=== PATIENT | female | born 1955 | race Caucasian/White ===

== ENCOUNTER 2019-07-04 16:00 | Outpatient (RCR) | payer MEDICARE, MEDICAID, SELFPAY ==
--- NOTE | 2019-05-21 18:38 | PT.OIE ---
Current Diagnoses Plantar fascial fibromatosis (05/21/19) Difficulty in walking, not elsewhere classified (05/21/19) Abnormal posture (05/21/19) Visit Care Team Role Provider Type Vanessa Lepe MD Attending Provider Non-Staff Family Provider Primary Care Provider Specialty: Medical Address: [address] [place] [address], [id number] Email: Physical Therapy Initial Evaluation PT-OP-A Visit Information Start: 05/23/19 09:22 Freq: Status: Active Protocol: Document 05/21/19 17:23 AW (Rec: 05/23/19 17:00 AW [email or web address]) Out-Patient Physical Therapy Visit Information Visit Information Visit Type Initial Evaluation Visit Start Time 13:45 Visit Stop Time 14:30 Total Visit Minutes 45 Visit Number 1 Number of CINEMA OR THEATRE MANAGER Visits 0 Evaluation Information Evaluation Date 05/21/19 PT-OP-B Current Condition Start: 05/23/19 09:22 Freq: Status: Active Protocol: Document 05/21/19 17:23 AW (Rec: 05/23/19 17:00 AW [email or web address]) Current Condition History of Current Condition Onset Date 6 months Current Complaints right heel and knee pain History of Current Condition Approximately six months ago, Trinity struck her heel hard on a cement floor which was followed by immediate heel pain that lasted several weeks . Since then, the pain has waxed and waned but continues to bother her. The heel pain is worse upon first steps in the morning and after periods of activity. At baseline, pt prefers to be barefoot or in minimalist footwear. She does report that her heel pain has improved since she started wearing cross-training shoes more regularly. The shoes offer moderate hindfoot support but little support at the heel counter and little forefoot support. Within the past month, pt reports new onset right knee pain which she believes is associated with avoiding heelstrike on her right leg while walking. Pt also reports chronic neck pain but is agreeable to focusing this plan of care on heel and knee pain. Prior Treatments and Tests Pt has not seen podiatry and has never had PT for this problem before. Future Testing and Treatments Planned None identified Treatment Goals Patient/Caregiver Goals To minimize heel and knee pain for improved ambulation, stair navigation, and return to regular exercise. Prior Functional Status Baseline Function- ADL's Independent Baseline Function- Mobility Independent Baseline Function- Gait no assistive device Current Functional Impairments (Reported) Functional Limitations- Mobility/Gait Heel and knee pain with first morning steps and after periods of activity Personal Factors Other Personal Factors That May Effect osteopenia/osteoporosis Therapy/Recovery PT-OP-C Subjective Start: 05/23/19 09:22 Freq: Status: Active Protocol: Document 05/21/19 17:23 AW (Rec: 05/23/19 17:00 AW [email or web address]) OP-PT Subjective Patient Comments Patient Comments I want to be able to walk better and without pain. Patient Questionnaires Lower Extremity Functional Scale LEFS Score 63 LEFS Impairment 1 to 19% Impaired (Score 63-79 ) PT-OP-F Manual Assessment Start: 05/23/19 09:22 Freq: Status: Active Protocol: Document 05/21/19 17:23 AW (Rec: 05/23/19 17:00 AW [email or web address]) Manual Assessments Soft Tissue Assessment Soft Tissue Mobility Assessment Increased density of right gastroc/soleus complex Joint Mobility Assessment Joint Mobility Assessment Posterior talar glides mildly restricted bilaterally. PT-OP-G Mobility & Gait Start: 05/23/19 09:22 Freq: Status: Active Protocol: Document 05/21/19 17:23 AW (Rec: 05/23/19 17:00 AW [email or web address]) OP Gait Assessment Gait Deviations General Gait Pattern Antalgic,Decreased Stride Length,Decreased Feet Clearance Factors Limiting Gait Function Factors Limiting Gait Function Pain Comments Gait Comments Pt presents with decreased heelstrike and decreased stance time on RLE and decreased step length LLE. PT-OP-H Neuro Start: 05/23/19 09:22 Freq: Status: Active Protocol: Document 05/21/19 17:23 AW (Rec: 05/23/19 17:00 AW [email or web address]) Sensation Evaluation Gross Sensation Gross Sensation WNL Deep Tendon Reflex & Clonus Assessment Deep Tendon Reflex Bilateral Achilles Deep Tendon Reflex 2+ Normal Bilateral Patellar Deep Tendon Reflex 2+ Normal PT-OP-J Posture/Palpation/Skin Start: 05/23/19 09:22 Freq: Status: Active Protocol: Document 05/21/19 17:23 AW (Rec: 05/27/19 15:36 AW [id number]) Posture Evaluation Position Standing Evaluation View Posterior Hip Posture (L) Neutral,(R) Neutral Ankle/Foot Posture (L) Neutral,(R) Neutral Foot Arch (L) Medium Arch,(R) Medium Arch Comments Posture Comments Pt presents with decreased weighbearing RLE, bilateral medium arches, neutral Achilles alignment, no apparent varus or valgus posture at the knee, and without significant rotation/ version at the hips. Palpation Assessment Location One Palpation Location right feet Palpation Findings Tenderness Palpation Details Able to provoke pain at the plantar aspect of the calcaneus with deep palpation. No point tenderness of posterior calcaneus. PT-OP-K Range of Motion Start: 05/23/19 09:22 Freq: Status: Active Protocol: Document 05/21/19 17:23 AW (Rec: 05/27/19 15:36 AW [id number]) Knee Goniometric Range of Motion Knee Right Patient Position Supine Flexion Active (degrees) 115 Extension Active (degrees) 0 Left Patient Position Supine Flexion Active (degrees) 120 Extension Active (degrees) 0 Knee ROM Limitations Knee ROM Limitations Pain Ankle and Foot Goniometric Range of Motion Ankle and Foot Right Active Testing Position Supine Dorsiflexion with Knee Flexed 10 Dorsiflexion with Knee Extended 0 Left Active Testing Position Supine Dorsiflexion with Knee Flexed 10 Dorsiflexion with Knee Extended 0 Ankle and Foot ROM Limitations ROM Limitations Soft Tissue Tightness Comments Limitation likely due to plantar flexor tightness PT-OP-L Special Tests Start: 05/23/19 09:22 Freq: Status: Active Protocol: Document 05/21/19 17:23 AW (Rec: 05/27/19 15:36 AW [id number]) Special Tests Hip Special Tests Scour Test Test Results negative bilaterally Knee Special Tests Sal Test Results negative bilaterally Comments no evidence of tight hip flexors or IT band/TFL Valgus- 25 Degrees Test Results negative Comments Right knee negative on varus and valgus stress testing at 0 and 25 degrees Patellar Grind Test Test Results positive right Comments reproduced knee pain Foot/Ankle Special Tests 1 Test Results Windlass negative Comments negative in WB and NWB PT-OP-M Strength Start: 05/23/19 09:22 Freq: Status: Active Protocol: Document 05/21/19 17:23 AW (Rec: 05/27/19 15:36 AW [id number]) Knee Strength Knee Manual Muscle Testing Right Flexion (S2) 4 Good Extension (L3) 4 Good Comments Left knee 5/5 flexion and extension Ankle/Foot Strength Ankle and Foot Manual Muscle Testing Right Dorsiflexion (L4) 4 Good Plantarflexion (S1) 4+ Good+ Inversion 4+ Good+ Eversion (S1) 4+ Good+ Comments No difference side to side. Toe Strength Toe Manual Muscle Testing Right Great Toe Flexion 4+ Good+ Extension 4+ Good+ Comments No difference side to side PT-OP-T Assessment and Plan Start: 05/23/19 09:22 Freq: Status: Active Protocol: Document 05/21/19 17:23 AW (Rec: 05/27/19 15:36 AW [email or web address]) Physical Therapy Assessment Rehab Potential Rehabilitation Potential Excellent Evaluation Complexity Number of Personal Factors/Comorbidities 1-2 Number of Body Systems Impaired 1-2 Clinical Presentation at Evaluation Stable Impairments Impairments Balance,Gait,Pain,Posture,ROM, Soft Tissue Mobility,Strength Goals 3 Impairment Pt with 0 degrees active dorsiflexion with knee extended [facility] Goal (LTG) Pt will increase active DF with knee extended to 5 degrees or greater for improved gait mechanics/ heelstrike. LTG Duration 06/18/19 2 Impairment Pt scores 63/80 on LEFS [facility] Goal (LTG) Pt will score 72/80 or greater for improved function in daily activities. LTG Duration 06/18/19 1 Impairment Pt without appropriate HEP Short Term Goal (STG) Pt will be independent with HEP for support of therapy services provided in clinic. STG Duration 06/04/19 Assessment Summary Assessment Trinity presents as a low complexity evaluation in outpatient physical therapy with complaints of right heel pain worse in the morning and after periods of activity. Her pain was precipitated by a hard heelstrike on a concrete floor several months ago. Altered gait pattern - including decreased right heelstrike and decreased R LE stance time - has perpetuated her heel pain and likely contributed to right knee pain . Pt's foot pain is not highly irritable and is somewhat ameliorated by change in footwear, but has potential to increase her knee pain due to altered gait. She presents with decreased function, altered gait, decreased ankle range of motion, and right foot pain which can be addressed by outpatient physical therapy. Physical Therapy Plan Frequency and Duration Frequency of Treatment 1x/Week Duration of Treatment 4 weeks Plan of Care Start Date 05/21/19 Plan of Care End Date 06/25/19 Therapeutic Interventions Therapeutic Interventions Balance Training,Gait Training ,Home Exercise Program,Joint Mobilizations,Manual Therapy, Neuromuscular Re-education, Orthotic/Prosthetic Management ,Patient/Caregiver Education, Self-Care/Home Management,Soft Tissue Mobilization,Taping, Therapeutic Activities, Therapeutic Exercises Modalities Cold Pack/Ice Massage, Ultrasound Next Visit Focus/Plan Next Note Type Treatment Note Next Visit Plan AROM ankle, progress to resisted ankle ROM as tolerated, gastroc/soleus stretching, ankle joint mobs to improve DF
--- NOTE | 2019-06-06 17:07 | PT.OTN ---
Current Diagnoses Plantar fascial fibromatosis (06/06/19) Difficulty in walking, not elsewhere classified (06/06/19) Abnormal posture (06/06/19) Physical Therapy Treatment Note PT-OP-A Visit Information Start: 05/23/19 09:22 Freq: Status: Active Protocol: Document 06/06/19 16:54 AW (Rec: 06/06/19 17:07 AW [email or web address]) Out-Patient Physical Therapy Visit Information Visit Information Visit Type Treatment Note Visit Start Time 16:00 Visit Stop Time 16:45 Total Visit Minutes 45 Visit Number 2 Number of BUS ASSISTANT Visits 0 Evaluation Information Evaluation Date 05/21/19 PT-OP-B Current Condition Start: 05/23/19 09:22 Freq: Status: Active Protocol: Document 05/21/19 17:23 AW (Rec: 05/23/19 17:00 AW [email or web address]) Current Condition History of Current Condition Onset Date 6 months Current Complaints right heel and knee pain History of Current Condition Approximately six months ago, Trinity struck her heel hard on a cement floor which was followed by immediate heel pain that lasted several weeks . Since then, the pain has waxed and waned but continues to bother her. The heel pain is worse upon first steps in the morning and after periods of activity. At baseline, pt prefers to be barefoot or in minimalist footwear. She does report that her heel pain has improved since she started wearing cross-training shoes more regularly. The shoes offer moderate hindfoot support but little support at the heel counter and little forefoot support. Within the past month, pt reports new onset right knee pain which she believes is associated with avoiding heelstrike on her right leg while walking. Pt also reports chronic neck pain but is agreeable to focusing this plan of care on heel and knee pain. Prior Treatments and Tests Pt has not seen podiatry and has never had PT for this problem before. Future Testing and Treatments Planned None identified Treatment Goals Patient/Caregiver Goals To minimize heel and knee pain for improved ambulation, stair navigation, and return to regular exercise. 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 PT-OP-F Manual Assessment Start: 05/23/19 09:22 Freq: Status: Active Protocol: Document 05/21/19 17:23 AW (Rec: 05/23/19 17:00 AW [email or web address]) Manual Assessments Soft Tissue Assessment Soft Tissue Mobility Assessment Increased density of right gastroc/soleus complex Joint Mobility Assessment Joint Mobility Assessment Posterior talar glides mildly restricted bilaterally. PT-OP-G Mobility & Gait Start: 05/23/19 09:22 Freq: Status: Active Protocol: Document 05/21/19 17:23 AW (Rec: 05/23/19 17:00 AW [email or web address]) OP Gait Assessment Gait Deviations General Gait Pattern Antalgic,Decreased Stride Length,Decreased Feet Clearance Factors Limiting Gait Function Factors Limiting Gait Function Pain Comments Gait Comments Pt presents with decreased heelstrike and decreased stance time on RLE and decreased step length LLE. PT-OP-H Neuro Start: 05/23/19 09:22 Freq: Status: Active Protocol: Document 05/21/19 17:23 AW (Rec: 05/23/19 17:00 AW [email or web address]) Sensation Evaluation Gross Sensation Gross Sensation WNL Deep Tendon Reflex & Clonus Assessment Deep Tendon Reflex Bilateral Achilles Deep Tendon Reflex 2+ Normal Bilateral Patellar Deep Tendon Reflex 2+ Normal PT-OP-J Posture/Palpation/Skin Start: 05/23/19 09:22 Freq: Status: Active Protocol: Document 05/21/19 17:23 AW (Rec: 05/27/19 15:36 AW [id number]) Posture Evaluation Position Standing Evaluation View Posterior Hip Posture (L) Neutral,(R) Neutral Ankle/Foot Posture (L) Neutral,(R) Neutral Foot Arch (L) Medium Arch,(R) Medium Arch Comments Posture Comments Pt presents with decreased weighbearing RLE, bilateral medium arches, neutral Achilles alignment, no apparent varus or valgus posture at the knee, and without significant rotation/ version at the hips. Palpation Assessment Location One Palpation Location right feet Palpation Findings Tenderness Palpation Details Able to provoke pain at the plantar aspect of the calcaneus with deep palpation. No point tenderness of posterior calcaneus. PT-OP-K Range of Motion Start: 05/23/19 09:22 Freq: Status: Active Protocol: Document 05/21/19 17:23 AW (Rec: 05/27/19 15:36 AW [id number]) Knee Goniometric Range of Motion Knee Right Patient Position Supine Flexion Active (degrees) 115 Extension Active (degrees) 0 Left Patient Position Supine Flexion Active (degrees) 120 Extension Active (degrees) 0 Knee ROM Limitations Knee ROM Limitations Pain Ankle and Foot Goniometric Range of Motion Ankle and Foot Right Active Testing Position Supine Dorsiflexion with Knee Flexed 10 Dorsiflexion with Knee Extended 0 Left Active Testing Position Supine Dorsiflexion with Knee Flexed 10 Dorsiflexion with Knee Extended 0 Ankle and Foot ROM Limitations ROM Limitations Soft Tissue Tightness Comments Limitation likely due to plantar flexor tightness PT-OP-L Special Tests Start: 05/23/19 09:22 Freq: Status: Active Protocol: Document 05/21/19 17:23 AW (Rec: 05/27/19 15:36 AW [id number]) Special Tests Hip Special Tests Scour Test Test Results negative bilaterally Knee Special Tests Sal Test Results negative bilaterally Comments no evidence of tight hip flexors or IT band/TFL Valgus- 25 Degrees Test Results negative Comments Right knee negative on varus and valgus stress testing at 0 and 25 degrees Patellar Grind Test Test Results positive right Comments reproduced knee pain Foot/Ankle Special Tests 1 Test Results Windlass negative Comments negative in WB and NWB PT-OP-M Strength Start: 05/23/19 09:22 Freq: Status: Active Protocol: Document 05/21/19 17:23 AW (Rec: 05/27/19 15:36 AW [id number]) Knee Strength Knee Manual Muscle Testing Right Flexion (S2) 4 Good Extension (L3) 4 Good Comments Left knee 5/5 flexion and extension Ankle/Foot Strength Ankle and Foot Manual Muscle Testing Right Dorsiflexion (L4) 4 Good Plantarflexion (S1) 4+ Good+ Inversion 4+ Good+ Eversion (S1) 4+ Good+ Comments No difference side to side. Toe Strength Toe Manual Muscle Testing Right Great Toe Flexion 4+ Good+ Extension 4+ Good+ Comments No difference side to side PT-OP-Q Treatments Start: 05/23/19 09:22 Freq: Status: Active Protocol: Document 06/06/19 16:54 AW (Rec: 06/06/19 17:07 AW [email or web address]) Therapeutic Exercises Sitting Exercises seated soleus stretch Sitting Exercise Name seated soleus stretch Side bilateral Reps/Minutes 2 minutes bilat long-sitting calf stretch Sitting Exercise Name long-sitting calf stretch Side bilateral Equipment Used gait belt Reps/Minutes 2 minutes bilat Comments pt able to perform at home with towel Standing Exercises gastroc stretch Standing Exercise Name gastroc stretch Side bilateral Reps/Minutes 2 minutes bilat Comments cues for straight line shoulders to heel Manual Therapy Treatment Soft Tissue Mobilization plantar foot Body Location plantar foot Mobilization Type Myofascial Release Intensity/Depth Moderate Body Position Supine Comments pt notes point tenderness at plantar aspect of calcaneus Joint Mobilizations talocrural Joint talocrural Direction anterior > posterior Grade III Body Position Supine Reps/Duration 5 minutes Comments with active dorsiflexion PT-OP-T Assessment and Plan Start: 05/23/19 09:22 Freq: Status: Active Protocol: Document 06/06/19 16:54 AW (Rec: 06/06/19 17:07 AW [email or web address]) Physical Therapy Assessment Goals 3 Impairment Pt with 0 degrees active dorsiflexion with knee extended Residential Goal (LTG) Pt will increase active DF with knee extended to 5 degrees or greater for improved gait mechanics/ heelstrike. LTG Duration 06/18/19 2 Impairment Pt scores 63/80 on LEFS Heater Operator Goal (LTG) Pt will score 72/80 or greater for improved function in daily activities. LTG Duration 06/18/19 1 Impairment Pt without appropriate HEP Short Term Goal (STG) Pt will be independent with HEP for support of therapy services provided in clinic. STG Duration 06/04/19 Assessment Summary Assessment Pt notes increased pain in her posterior thigh and anterior knee when she walks with equal weightbearing bilaterally. Hamstring length was assessed as sufficient, but patient benefits from HS stretching. She required extra time in exercise instruction but was able to return demonstrate for HEP by end of session. Physical Therapy Plan Frequency and Duration Frequency of Treatment 1x/Week Duration of Treatment 4 weeks Plan of Care Start Date 05/21/19 Plan of Care End Date 12/30/19 Therapeutic Interventions Therapeutic Interventions Balance Training,Gait Training ,Home Exercise Program,Joint Mobilizations,Manual Therapy, Neuromuscular Re-education, Orthotic/Prosthetic Management ,Patient/Caregiver Education, Self-Care/Home Management,Soft Tissue Mobilization,Taping, Therapeutic Activities, Therapeutic Exercises Modalities Cold Pack/Ice Massage, Ultrasound Next Visit Focus/Plan Next Note Type Treatment Note Next Visit Plan AROM ankle, progress to resisted ankle ROM as tolerated, gastroc/soleus stretching, ankle joint mobs to improve DF
--- NOTE | 2019-07-04 17:08 | PT.OTN ---
Current Diagnoses Plantar fascial fibromatosis (07/04/19) Difficulty in walking, not elsewhere classified (07/04/19) Abnormal posture (07/04/19) Physical Therapy Treatment Note PT-OP-A Visit Information Start: 05/23/19 09:22 Freq: Status: Active Protocol: Document 07/04/19 16:56 AW (Rec: 07/04/19 17:08 AW [email or web address]) Out-Patient Physical Therapy Visit Information Visit Information Visit Type Treatment Note Visit Start Time 16:00 Visit Stop Time 16:45 Total Visit Minutes 45 Visit Number 3 Number of JACQUARD LACE WEAVER Visits 0 Evaluation Information Evaluation Date 05/21/19 PT-OP-B Current Condition Start: 05/23/19 09:22 Freq: Status: Active Protocol: Document 05/21/19 17:23 AW (Rec: 05/23/19 17:00 AW [email or web address]) Current Condition History of Current Condition Onset Date 6 months Current Complaints right heel and knee pain History of Current Condition Approximately six months ago, Trinity struck her heel hard on a cement floor which was followed by immediate heel pain that lasted several weeks . Since then, the pain has waxed and waned but continues to bother her. The heel pain is worse upon first steps in the morning and after periods of activity. At baseline, pt prefers to be barefoot or in minimalist footwear. She does report that her heel pain has improved since she started wearing cross-training shoes more regularly. The shoes offer moderate hindfoot support but little support at the heel counter and little forefoot support. Within the past month, pt reports new onset right knee pain which she believes is associated with avoiding heelstrike on her right leg while walking. Pt also reports chronic neck pain but is agreeable to focusing this plan of care on heel and knee pain. Prior Treatments and Tests Pt has not seen podiatry and has never had PT for this problem before. Future Testing and Treatments Planned None identified Treatment Goals Patient/Caregiver Goals To minimize heel and knee pain for improved ambulation, stair navigation, and return to regular exercise. Prior Functional Status Baseline Function- ADL's Independent Baseline Function- Mobility Independent Baseline Function- Gait no assistive device Current Functional Impairments (Reported) Functional Limitations- Mobility/Gait Heel and knee pain with first morning steps and after periods of activity Personal Factors Other Personal Factors That May Effect osteopenia/osteoporosis Therapy/Recovery PT-OP-C Subjective Start: 05/23/19 09:22 Freq: Status: Active Protocol: Document 07/04/19 16:56 AW (Rec: 07/04/19 17:08 AW [email or web address]) OP-PT Subjective Patient Comments Patient Comments Pt's recently and she will be leaving the area at the end of the month. She reports her heel pain is largely resolved but she is having new tightness in her distal hamstring and calf as well as nerve pain in her dorsal foot. PT-OP-F Manual Assessment Start: 05/23/19 09:22 Freq: Status: Active Protocol: Document 05/21/19 17:23 AW (Rec: 05/23/19 17:00 AW [email or web address]) Manual Assessments Soft Tissue Assessment Soft Tissue Mobility Assessment Increased density of right gastroc/soleus complex Joint Mobility Assessment Joint Mobility Assessment Posterior talar glides mildly restricted bilaterally. PT-OP-G Mobility & Gait Start: 05/23/19 09:22 Freq: Status: Active Protocol: Document 05/21/19 17:23 AW (Rec: 05/23/19 17:00 AW [email or web address]) OP Gait Assessment Gait Deviations General Gait Pattern Antalgic,Decreased Stride Length,Decreased Feet Clearance Factors Limiting Gait Function Factors Limiting Gait Function Pain Comments Gait Comments Pt presents with decreased heelstrike and decreased stance time on RLE and decreased step length LLE. PT-OP-H Neuro Start: 05/23/19 09:22 Freq: Status: Active Protocol: Document 05/21/19 17:23 AW (Rec: 05/23/19 17:00 AW [email or web address]) Sensation Evaluation Gross Sensation Gross Sensation WNL Deep Tendon Reflex & Clonus Assessment Deep Tendon Reflex Bilateral Achilles Deep Tendon Reflex 2+ Normal Bilateral Patellar Deep Tendon Reflex 2+ Normal PT-OP-J Posture/Palpation/Skin Start: 05/23/19 09:22 Freq: Status: Active Protocol: Document 05/21/19 17:23 AW (Rec: 05/27/19 15:36 AW [id number]) Posture Evaluation Position Standing Evaluation View Posterior Hip Posture (L) Neutral,(R) Neutral Ankle/Foot Posture (L) Neutral,(R) Neutral Foot Arch (L) Medium Arch,(R) Medium Arch Comments Posture Comments Pt presents with decreased weighbearing RLE, bilateral medium arches, neutral Achilles alignment, no apparent varus or valgus posture at the knee, and without significant rotation/ version at the hips. Palpation Assessment Location One Palpation Location right feet Palpation Findings Tenderness Palpation Details Able to provoke pain at the plantar aspect of the calcaneus with deep palpation. No point tenderness of posterior calcaneus. PT-OP-K Range of Motion Start: 05/23/19 09:22 Freq: Status: Active Protocol: Document 05/21/19 17:23 AW (Rec: 05/27/19 15:36 AW [id number]) Knee Goniometric Range of Motion Knee Right Patient Position Supine Flexion Active (degrees) 115 Extension Active (degrees) 0 Left Patient Position Supine Flexion Active (degrees) 120 Extension Active (degrees) 0 Knee ROM Limitations Knee ROM Limitations Pain Ankle and Foot Goniometric Range of Motion Ankle and Foot Right Active Testing Position Supine Dorsiflexion with Knee Flexed 10 Dorsiflexion with Knee Extended 0 Left Active Testing Position Supine Dorsiflexion with Knee Flexed 10 Dorsiflexion with Knee Extended 0 Ankle and Foot ROM Limitations ROM Limitations Soft Tissue Tightness Comments Limitation likely due to plantar flexor tightness PT-OP-L Special Tests Start: 05/23/19 09:22 Freq: Status: Active Protocol: Document 05/21/19 17:23 AW (Rec: 05/27/19 15:36 AW [id number]) Special Tests Hip Special Tests Scour Test Test Results negative bilaterally Knee Special Tests Sal Test Results negative bilaterally Comments no evidence of tight hip flexors or IT band/TFL Valgus- 25 Degrees Test Results negative Comments Right knee negative on varus and valgus stress testing at 0 and 25 degrees Patellar Grind Test Test Results positive right Comments reproduced knee pain Foot/Ankle Special Tests 1 Test Results Windlass negative Comments negative in WB and NWB PT-OP-M Strength Start: 05/23/19 09:22 Freq: Status: Active Protocol: Document 05/21/19 17:23 AW (Rec: 05/27/19 15:36 AW [id number]) Knee Strength Knee Manual Muscle Testing Right Flexion (S2) 4 Good Extension (L3) 4 Good Comments Left knee 5/5 flexion and extension Ankle/Foot Strength Ankle and Foot Manual Muscle Testing Right Dorsiflexion (L4) 4 Good Plantarflexion (S1) 4+ Good+ Inversion 4+ Good+ Eversion (S1) 4+ Good+ Comments No difference side to side. Toe Strength Toe Manual Muscle Testing Right Great Toe Flexion 4+ Good+ Extension 4+ Good+ Comments No difference side to side PT-OP-Q Treatments Start: 05/23/19 09:22 Freq: Status: Active Protocol: Document 07/04/19 16:56 AW (Rec: 07/04/19 17:08 AW [email or web address]) Therapeutic Exercises Standing Exercises forward step up Standing Exercise Name forward step up Side bilateral Equipment Used 6 step, rail for support Reps/Minutes 10 reps bilat heel raises Standing Exercise Name heel raises Side bilateral Equipment Used 6 step, rail for support Reps/Minutes 2x10 reps TOY Standing Exercise Name TOY Side bilateral Reps/Minutes 4 minutes Comments static stretch + active DF/PF standing hamstring stretch Standing Exercise Name standing hamstring stretch Side bilateral Equipment Used 12 step Reps/Minutes 30 sec x 4 bilat Comments cues for upright posture, fwd trunk lean to increase intensity gastroc stretch Standing Exercise Name gastroc stretch Side bilateral Reps/Minutes 2 minutes bilat Comments cues for straight line shoulders to heel Manual Therapy Treatment Soft Tissue Mobilization medial hamstring Body Location medial hamstring, right Mobilization Type Myofascial Release,Sustained Pressure,Trigger Point Release Intensity/Depth Moderate Body Position Sidelying Joint Mobilizations talocrural Joint talocrural Direction anterior > posterior Grade III Body Position Supine Reps/Duration 5 minutes Comments with active dorsiflexion PT-OP-T Assessment and Plan Start: 05/23/19 09:22 Freq: Status: Active Protocol: Document 07/04/19 16:56 AW (Rec: 07/04/19 17:08 AW [email or web address]) Physical Therapy Assessment Goals 3 Impairment Pt with 0 degrees active dorsiflexion with knee extended Mcfp Goal (LTG) Pt will increase active DF with knee extended to 5 degrees or greater for improved gait mechanics/ heelstrike. LTG Duration 08/25/19 2 Impairment Pt scores 63/80 on LEFS Refrigerating Engineer Head Goal (LTG) Pt will score 72/80 or greater for improved function in daily activities. LTG Duration 08/25/19 1 Impairment Pt without appropriate HEP Short Term Goal (STG) Pt will be independent with HEP for support of therapy services provided in clinic. STG Duration 08/25/19 Assessment Summary Assessment Pt reports new nerve pain symptoms on dorsal foot but PT unable to reproduce in clinic . Her descriptions are vague and wandering, but it is clear she has some tightness in her posterior thigh and calf. Treatment focused on stretching and strengthening. Plan of care will be extended for at least one follow up appointment before pt leaves [facility] beginning of July. Physical Therapy Plan Frequency and Duration Frequency of Treatment 1x/Week Duration of Treatment 6 weeks Plan of Care Start Date 07/04/19 Plan of Care End Date 08/25/19 Therapeutic Interventions Therapeutic Interventions Balance Training,Gait Training ,Home Exercise Program,Joint Mobilizations,Manual Therapy, Neuromuscular Re-education, Orthotic/Prosthetic Management ,Patient/Caregiver Education, Self-Care/Home Management,Soft Tissue Mobilization,Taping, Therapeutic Activities, Therapeutic Exercises Modalities Cold Pack/Ice Massage, Ultrasound Next Visit Focus/Plan Next Note Type Treatment Note Next Visit Plan Assess response to treatment and HEP, progress knee strength and posterior chain stretching.
--- NOTE | 2019-07-04 17:08 | PT.OPPOC ---
Physical, Occupational & Speech Therapy At [facility] Current Diagnoses Plantar fascial fibromatosis (07/04/19) Difficulty in walking, not elsewhere classified (07/04/19) Abnormal posture (07/04/19) Visit Care Team Role Provider Type Vanessa Lepe MD Attending Provider Non-Staff Family Provider Primary Care Provider Specialty: Medical Address: [address] [place] [address], [phone] Email: Plan Of Care PT-OP-T Assessment and Plan Start: 05/23/19 09:22 Freq: Status: Active Protocol: Document 07/04/19 16:56 AW (Rec: 07/04/19 17:08 AW [email or web address]) Physical Therapy Assessment Goals 3 Impairment Pt with 0 degrees active dorsiflexion with knee extended Ladies' Hat Trimmer Goal (LTG) Pt will increase active DF with knee extended to 5 degrees or greater for improved gait mechanics/ heelstrike. LTG Duration 08/25/19 2 Impairment Pt scores 63/80 on LEFS Snf Goal (LTG) Pt will score 72/80 or greater for improved function in daily activities. LTG Duration 08/25/19 1 Impairment Pt without appropriate HEP Short Term Goal (STG) Pt will be independent with HEP for support of therapy services provided in clinic. STG Duration 08/25/19 Assessment Summary Assessment Pt reports new nerve pain symptoms on dorsal foot but PT unable to reproduce in clinic . Her descriptions are vague and wandering, but it is clear she has some tightness in her posterior thigh and calf. Treatment focused on stretching and strengthening. Plan of care will be extended for at least one follow up appointment before pt leaves [facility] beginning of July. Physical Therapy Plan Frequency and Duration Frequency of Treatment 1x/Week Duration of Treatment 6 weeks Plan of Care Start Date 07/04/19 Plan of Care End Date 08/25/19 Therapeutic Interventions Therapeutic Interventions Balance Training,Gait Training ,Home Exercise Program,Joint Mobilizations,Manual Therapy, Neuromuscular Re-education, Orthotic/Prosthetic Management ,Patient/Caregiver Education, Self-Care/Home Management,Soft Tissue Mobilization,Taping, Therapeutic Activities, Therapeutic Exercises Modalities Cold Pack/Ice Massage, Ultrasound Next Visit Focus/Plan Next Note Type Treatment Note Next Visit Plan Assess response to treatment and HEP, progress knee strength and posterior chain stretching. Plan of Care Dates Plan of Care Start Date 07/04/19 Plan of Care End Date 08/25/19 Electronically Signed by: Kamilla Carter PT 07/04/19 1696 Please Sign and Return: I have reviewed this Plan of Care and certify that the skilled therapy services above are required to meet the patient?s needs. Physician Signature Date Printed Name and Credentials Clinical Instructor Signature Printed Name and Credentials
--- NOTE | 2019-08-15 11:48 | PT.OPDS ---
Current Diagnoses Plantar fascial fibromatosis (07/04/19) Difficulty in walking, not elsewhere classified (07/04/19) Abnormal posture (07/04/19) Visit Care Team Role Provider Type Vanessa Lepe MD Attending Provider Non-Staff Family Provider Primary Care Provider Specialty: Medical Address: [address] [place] [address], [phone] Email: Visit Number Visit Number 3 Discharge Summary PT-OP-B Current Condition Start: 05/23/19 09:22 Freq: Status: Active Protocol: Document 05/21/19 17:23 AW (Rec: 05/23/19 17:00 AW [email or web address]) Current Condition History of Current Condition Onset Date 6 months Current Complaints right heel and knee pain History of Current Condition Approximately six months ago, Trinity struck her heel hard on a cement floor which was followed by immediate heel pain that lasted several weeks . Since then, the pain has waxed and waned but continues to bother her. The heel pain is worse upon first steps in the morning and after periods of activity. At baseline, pt prefers to be barefoot or in minimalist footwear. She does report that her heel pain has improved since she started wearing cross-training shoes more regularly. The shoes offer moderate hindfoot support but little support at the heel counter and little forefoot support. Within the past month, pt reports new onset right knee pain which she believes is associated with avoiding heelstrike on her right leg while walking. Pt also reports chronic neck pain but is agreeable to focusing this plan of care on heel and knee pain. Prior Treatments and Tests Pt has not seen podiatry and has never had PT for this problem before. Future Testing and Treatments Planned None identified Treatment Goals Patient/Caregiver Goals To minimize heel and knee pain for improved ambulation, stair navigation, and return to regular exercise. Prior Functional Status Baseline Function- ADL's Independent Baseline Function- Mobility Independent Baseline Function- Gait no assistive device Current Functional Impairments (Reported) Functional Limitations- Mobility/Gait Heel and knee pain with first morning steps and after periods of activity Personal Factors Other Personal Factors That May Effect osteopenia/osteoporosis Therapy/Recovery PT-OP-C Subjective Start: 05/23/19 09:22 Freq: Status: Active Protocol: Document 07/04/19 16:56 AW (Rec: 07/04/19 17:08 AW [email or web address]) OP-PT Subjective Patient Comments Patient Comments Pt's recently and she will be leaving the area at the end of the month. She reports her heel pain is largely resolved but she is having new tightness in her distal hamstring and calf as well as nerve pain in her dorsal foot. PT-OP-F Manual Assessment Start: 05/23/19 09:22 Freq: Status: Active Protocol: Document 05/21/19 17:23 AW (Rec: 05/23/19 17:00 AW [email or web address]) Manual Assessments Soft Tissue Assessment Soft Tissue Mobility Assessment Increased density of right gastroc/soleus complex Joint Mobility Assessment Joint Mobility Assessment Posterior talar glides mildly restricted bilaterally. PT-OP-G Mobility & Gait Start: 05/23/19 09:22 Freq: Status: Active Protocol: Document 05/21/19 17:23 AW (Rec: 05/23/19 17:00 AW [email or web address]) OP Gait Assessment Gait Deviations General Gait Pattern Antalgic,Decreased Stride Length,Decreased Feet Clearance Factors Limiting Gait Function Factors Limiting Gait Function Pain Comments Gait Comments Pt presents with decreased heelstrike and decreased stance time on RLE and decreased step length LLE. PT-OP-H Neuro Start: 05/23/19 09:22 Freq: Status: Active Protocol: Document 05/21/19 17:23 AW (Rec: 05/23/19 17:00 AW [email or web address]) Sensation Evaluation Gross Sensation Gross Sensation WNL Deep Tendon Reflex & Clonus Assessment Deep Tendon Reflex Bilateral Achilles Deep Tendon Reflex 2+ Normal Bilateral Patellar Deep Tendon Reflex 2+ Normal PT-OP-J Posture/Palpation/Skin Start: 05/23/19 09:22 Freq: Status: Active Protocol: Document 05/21/19 17:23 AW (Rec: 05/27/19 15:36 AW [id number]) Posture Evaluation Position Standing Evaluation View Posterior Hip Posture (L) Neutral,(R) Neutral Ankle/Foot Posture (L) Neutral,(R) Neutral Foot Arch (L) Medium Arch,(R) Medium Arch Comments Posture Comments Pt presents with decreased weighbearing RLE, bilateral medium arches, neutral Achilles alignment, no apparent varus or valgus posture at the knee, and without significant rotation/ version at the hips. Palpation Assessment Location One Palpation Location right feet Palpation Findings Tenderness Palpation Details Able to provoke pain at the plantar aspect of the calcaneus with deep palpation. No point tenderness of posterior calcaneus. PT-OP-K Range of Motion Start: 05/23/19 09:22 Freq: Status: Active Protocol: Document 05/21/19 17:23 AW (Rec: 05/27/19 15:36 AW [id number]) Knee Goniometric Range of Motion Knee Right Patient Position Supine Flexion Active (degrees) 115 Extension Active (degrees) 0 Left Patient Position Supine Flexion Active (degrees) 120 Extension Active (degrees) 0 Knee ROM Limitations Knee ROM Limitations Pain Ankle and Foot Goniometric Range of Motion Ankle and Foot Right Active Testing Position Supine Dorsiflexion with Knee Flexed 10 Dorsiflexion with Knee Extended 0 Left Active Testing Position Supine Dorsiflexion with Knee Flexed 10 Dorsiflexion with Knee Extended 0 Ankle and Foot ROM Limitations ROM Limitations Soft Tissue Tightness Comments Limitation likely due to plantar flexor tightness PT-OP-L Special Tests Start: 05/23/19 09:22 Freq: Status: Active Protocol: Document 05/21/19 17:23 AW (Rec: 05/27/19 15:36 AW [id number]) Special Tests Hip Special Tests Scour Test Test Results negative bilaterally Knee Special Tests Sal Test Results negative bilaterally Comments no evidence of tight hip flexors or IT band/TFL Valgus- 25 Degrees Test Results negative Comments Right knee negative on varus and valgus stress testing at 0 and 25 degrees Patellar Grind Test Test Results positive right Comments reproduced knee pain Foot/Ankle Special Tests 1 Test Results Windlass negative Comments negative in WB and NWB PT-OP-M Strength Start: 05/23/19 09:22 Freq: Status: Active Protocol: Document 05/21/19 17:23 AW (Rec: 05/27/19 15:36 AW [id number]) Knee Strength Knee Manual Muscle Testing Right Flexion (S2) 4 Good Extension (L3) 4 Good Comments Left knee 5/5 flexion and extension Ankle/Foot Strength Ankle and Foot Manual Muscle Testing Right Dorsiflexion (L4) 4 Good Plantarflexion (S1) 4+ Good+ Inversion 4+ Good+ Eversion (S1) 4+ Good+ Comments No difference side to side. Toe Strength Toe Manual Muscle Testing Right Great Toe Flexion 4+ Good+ Extension 4+ Good+ Comments No difference side to side PT-OP-T Assessment and Plan Start: 05/23/19 09:22 Freq: Status: Active Protocol: Document 08/15/19 11:47 AW (Rec: 08/15/19 11:48 AW [email or web address]) Physical Therapy Assessment Goals 3 Impairment Pt with 0 degrees active dorsiflexion with knee extended Composing Machine Operator Goal (LTG) Pt will increase active DF with knee extended to 5 degrees or greater for improved gait mechanics/ heelstrike. LTG Duration 08/25/19 2 Impairment Pt scores 63/80 on LEFS Composing Machine Operator Goal (LTG) Pt will score 72/80 or greater for improved function in daily activities. LTG Duration 08/25/19 1 Impairment Pt without appropriate HEP Short Term Goal (STG) Pt will be independent with HEP for support of therapy services provided in clinic. STG Duration 08/25/19 Physical Therapy Plan Discharge Physical Therapy Discharge Reasons No Longer Attending PT Discharge Comments Pt has left town for the winter and is no longer attending PT. She will require another referral if she wishes to return.
== END 2019-11-08 10:20 ==
LOC: PHYS 16:00
PROVIDERS: Family Provider Family Medicine; PCP Family Medicine; Visit Provider Family Medicine
DX: M72.2 Plantar fascial fibromatosis (principal); R29.3 Abnormal posture; R26.2 Difficulty in walking, not elsewhere classified
CPT/HCPCS: 97110; 97140; 97161

== ENCOUNTER → 2020-07-30 13:14 | Outpatient (CLI) | payer MEDICARE, MEDICAID, SELFPAY ==
--- NOTE | 2020-07-30 | DI.RAD.S_ITS ---
PROCEDURE: XR DEXA AXIAL SKELETON INDICATIONS: SCREENING COMPARISON: None. FINDINGS: This blank DEXA report has been sent in error by the PACS system. The correct and complete report will be forthcoming in 1-2 days. Thank you for your patience and understanding. Dictated by: Alexus Vasquez MD, PhD on 07/30/2020 at 17:28 Approved by: Alexus Vasquez MD, PhD on 07/30/2020 at 17:28
== END ==
PROVIDERS: Family Provider Family Medicine; PCP Family Medicine; Referring Provider Family Medicine; Visit Provider Family Medicine
DX: M85.851 Other specified disorders of bone density and structure, right thigh (principal); Z78.0 Asymptomatic menopausal state; Z82.62 Family history of osteoporosis; Z87.891 Personal history of nicotine dependence
CPT/HCPCS: 77080

== ENCOUNTER → 2020-12-16 15:01 | Outpatient (CLI) | payer MEDICARE, MEDICAID, SELFPAY ==
--- NOTE | 2020-12-16 | DI.RAD.S_ITS ---
PROCEDURE: XR CERVICAL SPINE 2V OR 3V INDICATIONS: neck pain TECHNIQUE: 3 view(s) of the cervical spine were acquired. COMPARISON: None. FINDINGS: Bones: No fractures or dislocations to the T1 level. The lateral masses of C1 appear intact on the odontoid view. No suspicious bony lesions. Moderate C3-C4-C5-C6 and C6-C7 degenerative disc changes. Mild C4-C5 degenerative disc changes. Mild C4-C5, C5-C6, C6-C7 and C7-T1 facet hypertrophy. Soft tissues: No prevertebral soft tissue swelling. IMPRESSION: 1. Multilevel degenerative disc disease. 2. Multilevel facet arthropathy. 3. No fracture. No acute osseous lesion. If symptoms and/or clinical suspicion for pathology persists, evaluation with MRI should be considered for further assessment. Dictated by: Alexus Vasquez MD, PhD on 12/16/2020 at 15:40 Approved by: Alexus Vasquez MD, PhD on 12/16/2020 at 15:41
== END ==
PROVIDERS: Family Provider Family Medicine; PCP Family Medicine; Referring Provider Family Medicine; Visit Provider Family Medicine
DX: M47.812 Spondylosis without myelopathy or radiculopathy, cervical region (principal); M50.31 Other cervical disc degeneration, high cervical region
CPT/HCPCS: 72040

== ENCOUNTER → 2021-01-02 12:16 | Outpatient (CLI) | payer MEDICARE, MEDICAID, SELFPAY ==
--- NOTE | 2021-01-02 | DI.US.S_ITS ---
PROCEDURE: US ABDOMEN LIMITED INDICATIONS: Other intra-abdominal and pelvic swelling TECHNIQUE: Real-time focused scanning was performed of the abdomen, with image documentation. COMPARISON: None. FINDINGS: Small left inguinal hernia is noted which contains trace amount of free fluid and fat. IMPRESSION: Small left inguinal hernia. Dictated by: Alexus Vasquez MD, PhD on 01/06/2021 at 10:29 Approved by: Alexus Vasquez MD, PhD on 01/06/2021 at 10:29
== END ==
PROVIDERS: Family Provider Family Medicine; PCP Family Medicine; Referring Provider Family Medicine; Visit Provider Family Medicine
DX: R19.09 Other intra-abdominal and pelvic swelling, mass and lump (principal); K40.90 Unilateral inguinal hernia, without obstruction or gangrene, not specified as recurrent
CPT/HCPCS: 76705

== ENCOUNTER 2021-01-27 14:30 | Outpatient (RCR) | payer MEDICARE, MEDICAID, SELFPAY ==
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
--- NOTE | 2020-12-17 15:10 | PT.OPPOC ---
Physical, Occupational & Speech Therapy At [facility] Current Diagnoses Cervicalgia (12/17/20) Visit Care Team Role Provider Type Vanessa Lepe MD Attending Provider Non-Staff Family Provider Primary Care Provider Referring Provider Specialty: Medical Address: [address] [place] [address], [id number] Email: Plan Of Care PT-OP-T Assessment and Plan Start: 12/17/20 12:40 Freq: Status: Active Protocol: Document 12/17/20 11:15 OF (Rec: 12/17/20 13:46 OF [email or web address]) Physical Therapy Assessment Rehab Potential Rehabilitation Potential Good Evaluation Complexity Number of Personal Factors/Comorbidities 1-2 Clinical Presentation at Evaluation Evolving Impairments Impairments Activity Tolerance,Pain, Strength Goals 3 Impairment loss of neck ROM Short Term Goal (STG) Pt will improve cervical rotation to 60 degrees bilat to improve safety awareness with driving STG Duration 2 weeks [facility]dc Goal (LTG) Pt will improve cervical rotation to >70degrees for return to IADL with reduced pain LTG Duration 4 weeks Two Impairment Neck disability index Chief Sustainability Officer Goal (LTG) Pt will score < 10% impaired on neck disability index to return to PLOF of I within community 1 Impairment pt lacks HEP Short Term Goal (STG) Pt will be I with basic HEP STG Duration 2weeks Chief Sustainability Officer Goal (LTG) Pt will be I with advanced HEP including pain management LTG Duration 4weeks Assessment Summary Assessment Trinity is a 65 YO female referred to physical therapy for neck pain. She requested an Xray prior to initiating tx . The Xray report includes finding of degenerative changes, facet arthopathy. 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 She has inconsistent reports of pain and loss of function in c spine, L shoulder, mid back, and hands. She has loss of ROM in cervical spine, and difficulty performing ADL or IADL. She has good strength in B UE. She will require skilled therapy to improve ROM , restore function with ADL. Physical Therapy Plan Frequency and Duration Frequency of Treatment 1-2x/week Duration of Treatment 4weeks Plan of Care Start Date 12/17/20 Plan of Care End Date 07/23/21 Therapeutic Interventions Therapeutic Interventions Gait Training,Home Exercise Program,Joint Mobilizations, Neuromuscular Re-education, Soft Tissue Mobilization, Therapeutic Activities, Therapeutic Exercises Modalities Cold Pack/Ice Massage,Electric Stimulation,Hot Packs Next Visit Focus/Plan Next Note Type Treatment Note Next Visit Plan pt has HEP, assess performance . Pt was inconsistent with provocative movements/ alleviating movements. She requires redirection for stretching and set up of strengthening activity. Progress cervical AAROM training, posterior strengthening Plan of Care Dates Plan of Care Start Date 12/17/20 Plan of Care End Date 01/16/21 Electronically Signed by: Napoleon Caro, PT 12/17/20 [id number] Please Sign and Return: I have reviewed this Plan of Care and certify that the skilled therapy services above are required to meet the patient?s needs. Physician Signature Date Printed Name and Credentials Clinical Instructor Signature Printed Name and Credentials
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
== END 2021-01-28 08:26 | disposition home or self-care (01) ==
LOC: PHYS 14:30
PROVIDERS: Family Provider Family Medicine; PCP Family Medicine; Referring Provider Family Medicine; Visit Provider Family Medicine
DX: M54.2 Cervicalgia (principal)
CPT/HCPCS: 97110; 97140; 97161

== ENCOUNTER → 2021-02-17 11:03 | Outpatient (CLI) | payer MEDICARE, MEDICAID, SELFPAY ==
[2021-02-17 12:24] LABS: COVID19 -Nasal RAPID Negative (Negative)
== END ==
PROVIDERS: Family Provider Family Medicine; PCP Family Medicine; Referring Provider Specialist; Visit Provider Specialist
DX: Z01.812 Encounter for preprocedural laboratory examination (principal); Z20.822 Contact with and (suspected) exposure to COVID-19
CPT/HCPCS: 87635; C9803

== ENCOUNTER 2021-02-18 06:45 | Day surgery (SDC) | payer MEDICARE, MEDICAID, SELFPAY ==
[2021-02-16 08:02] VITALS: BMI 24.1
[2021-02-18] VITALS (10 sets, daily range): BP systolic 132–153; BP diastolic 71–102; PULSE 50–67; RESP 9–16; TEMP 36.1–36.7; O2SAT 94–100; BMI 24.1
[2021-02-18] MEDS: LACTATED RINGERS 1,000 ML 42 ML IV (07:23)
--- NOTE | 2021-02-18 07:42 | PM.PREOP ---
Pre-operative Note COVID-19 COVID-19 status: Negative Result date/Date tested (Pos, Neg/Pending): 02/17/21 Interval Note History & Physical reviewed/Exam performed by Physician: Yes Changes to H&P: No
[2021-02-18] MEDS: CEFAZOLIN 1 GM VIAL 2 GM IV (08:00)
--- NOTE | 2021-02-18 08:10 | SUR.OPER ---
Supine on padded OR bed, head on pillow, arms secured on padded arm boards at <90 degrees abduction, legs uncrossed, safety belt at thigh, tape over blanket over lower legs.
[2021-02-18] MEDS: BUPIVACAINE 0.5% (PF) VIAL 30 ML INJ (08:17)
--- NOTE | 2021-02-18 09:08 | SUR.PHASEI ---
[address] Patient to PACU with Dr Torres and RN after General Anesth. Pt breathing unassisted on RA. HOB elevated.
--- NOTE | 2021-02-18 09:21 | PM.OP.1 ---
Operative Date/Time/Diagnoses Date of procedure: 02/18/21 Time of procedure: 09:21 Pre-op diagnosis: Visible left inguinal hernia Post-op diagnosis: same Procedure & Clinicians Procedure: Repair with onlay of mesh Same procedure as scheduled: Yes Indications: Symptomatic left inguinal hernia Surgeon: Altaf Radford Click Yes if Unassisted: Yes Anesthesia Type: General Operative Notes Findings: Generalize weakness of the floor. Possible small indirect sac. Closure Type: primary Specimen(s): none sent Prosthetic devices, grafts, tissues, transplants, or devices: Lightweight mesh Estimated Blood Loss (mL): 5 Blood products transfused: none Procedure in detail: The patient was placed supine on the operating room table and underwent general LMA anesthesia. He was prepped and draped in the usual fashion. A transverse incision was made overlying the internal ring and carried down to the level of the external oblique. The external oblique was opened parallel with its fibers through the external ring. The cord structures were elevated and detached at the pubic tubercle. Overlying muscle was removed and if there was a tiny residual sac was suture ligated with a 3-0 Vicryl distal portion removed and the stump allowed to retract.. I obtained a lightweight plug and patch to perform the repair but did not use the plug portion. The defect created was so small that applied would not fit in it.. The floor was examined and was found to be generally weakened.. A patch was placed across the floor and tacked at the pubic tubercle, the posterior lamella of the anterior rectus sheath, the ilioinguinal ligament, and superior lateral to the cord. Sutures of 0 Tycron were used to secure the mesh. The external oblique was closed with a running 3 0 Polysorb. The subcu was closed with interrupted 3 0 Polysorb. The skin was closed with a running 4 0 Polysorb subcuticular stitch and Steri-Strips. Dressing was applied, the patient was awakened, and the patient was taken to the recovery area in good condition. Complications: none Post-operative Condition: stable Disposition: PACU
[2021-02-18] MEDS: ACETAMINOPHEN 325 MG TABLET 650 MG PO (09:29)
[2021-02-18] MEDS: OXYCODONE IR 5 MG TABLET PO (09:39)
--- NOTE | 2021-02-18 10:02 | SUR.PHASEII ---
0956 Pt transferred to [facility]RIS[facility] in [facility]. Pt awake, alert, no nausea.
--- NOTE | 2021-02-18 10:35 | SUR.PHASEII ---
Sitting in the wheelchair, waiting for sales route driver helper to notify us that he is here. Tolerating PO intake. Stands easily, ice pack on site. Stated that her pain level is improving.
== END 2021-02-18 10:53 | disposition home or self-care (01) ==
PROVIDERS: Family Provider Family Medicine; PCP Family Medicine; Referring Provider Specialist; Visit Provider Specialist
PROC: (CPT 49505; principal; 2021-02-18 07:45)
DX: K40.90 Unilateral inguinal hernia, without obstruction or gangrene, not specified as recurrent (principal)
CPT/HCPCS: 49505; C1781; J0690; J1100; J1200; J2250; J2405; J2704; J3010

== ENCOUNTER → 2021-04-13 16:37 | Outpatient (CLI) | payer MEDICARE, MEDICAID, SELFPAY ==
[2021-04-13 18:27] LABS: COVID19 -Nasal RAPID POSITIVE (Negative)
== END ==
PROVIDERS: Family Provider Family Medicine; PCP Family Medicine; Visit Provider Physician Assistant
DX: U07.1 COVID-19 (principal); Z20.822 Contact with and (suspected) exposure to COVID-19; R05.9 Cough, unspecified
CPT/HCPCS: 87635

== ENCOUNTER 2021-04-15 16:49 | Emergency (ER) | payer MEDICARE, MEDICAID, SELFPAY ==
[2021-04-15 17:03] VITALS: BP 120/68; PULSE 78; RESP 18; TEMP 37.3; O2SAT 95
[2021-04-15 17:29] VITALS: BP 146/75; PULSE 71; RESP 18; TEMP 37.5; O2SAT 95
--- NOTE | 2021-04-15 17:35 | PC.NURSE ---
Patient lives with 90+ y/o roommate, states she has a non-stop nonproductive cough. Denies fever, temp here is 99.5. No hx of pneumonia but positive hx for smoking
--- NOTE | 2021-04-15 17:58 | ED.GENADULT ---
HPI - General Adult General Chief complaint: Shortness of Breath/Dyspnea Stated complaint: Covid +, cough, wants lungs checked Time Seen by Provider: 04/15/21 17:58 Source: patient Mode of arrival: Ambulatory History of Present Illness HPI narrative: 66-year-old woman with history of osteoporosis and on no other prescription medications presents at day 10 of her COVID infection wanting her ?lungs checked out?. She is under vaccinated apparently talked with the health department today recommended she come in for further evaluation. Over the last 40 she has been using expectorants and finding that she is having her cough loosen a bit. She describes minimal symptoms aside from the cough. Low-grade temperature over the last 2-3 days. No significant orthopnea, dyspnea. No body aches or headaches. Denies abdominal pain, vomiting or diarrhea. Related Data Home Medications Medication Instructions Recorded Confirmed alendronate 70 mg tablet 70 mg PO QWEEK 01/29/21 04/13/21 Previous Rx's Medication Instructions Recorded benzonatate 100 mg capsule 100 mg PO BID-TID PRN #20 cap 04/15/21 (Alicia Mccall) Allergies Allergy/AdvReac Type Severity Reaction Status Date / Time No Known Drug Allergies Allergy Verified 04/13/21 16:42 Review of Systems Review of Systems Narrative: Remainder of complete review of systems is otherwise unremarkable except for that included in the HPI. Patient History Medical History Hx of ectopic Osteopenia Osteoporosis Surgical History History of back surgery History of tonsillectomy Family History Father Cancer Heart problem Mother Cancer Social History household members: significant other Smoking Status: Never smoker alcohol intake: never Smoking Status: Never smoker Substance Use Type: does not use Exam Narrative Exam Narrative: General: Healthy appearing, in no acute distress. Able to give a complete and coherent history. Well-nourished well-developed HEENT: Moist mucous membranes, normal sclera with reactive pupils, Neck: No JVD, supple Respiratory: Lungs are clear to auscultation, no wheezing no rales no rhonchi. Full and symmetrical air movement, speaking in full sentences and room air saturations at 97-98% Cardiac: Regular rate and rhythm no murmurs no bruits Abdomen: Soft, nontender, good bowel tones, no flank pain Skin: Warm and dry, no rashes Neurologic: Grossly neurologically intact with no obvious asymmetries or abnormalities Extremities: No trauma, well perfused, lower extremity edema Psych: Cooperative, appropriate insight and affect Initial Vital Signs Initial Vital Signs: Vital Signs Temperature 99.1 F 04/15/21 17:03 Pulse Rate 78 04/15/21 17:03 Respiratory Rate 18 04/15/21 17:03 Blood Pressure 120/68 04/15/21 17:03 Pulse Oximetry 95 04/15/21 17:03 Course Orders Ordered: Discontinued Medications Benzonatate (Benzonatate 100 Mg Capsule) 100 mg PO NOW ONE Stop: 04/15/21 18:14 Vital Signs Vital signs: Vital Signs - 8 hr 04/15/21 17:03 04/15/21 17:29 Temperature 99.1 F 99.5 F Pulse Rate 78 71 Respiratory Rate 18 18 Blood Pressure 120/68 146/75 H Pulse Oximetry 95 95 Medical Decision Making MDM Narrative Additional Information: 66-year-old woman on day 10 of COVID symptoms improving with normal room air saturations. On day 10 she is out of the window for monoclonal antibodies. She is given a prescription for Tessalon to help with the cough. I opted to not discuss her detailed reasons for why vaccines are contraindicated and also declined prescribing ivermectin and hydroxychloroquine. At this point she is safe for home discharge Discharge Plan Departure Patient Disposition: Home Clinical Impression: COVID-19 Instructions: DI for COVID-19 (Suspected or Confirmed ) Activity Restrictions/Additional Instructions: Thank you for coming in today Fortunately your oxygen levels do look reassuring. On day 10 of infection that is a good sign that you are on your way to recovery without need for hospitalization are extra oxygen needed. I have given you a prescription for Tessalon Perles to help control the cough so the able to sleep a bit. I wish you the best Prescriptions: New benzonatate [Tessalon Perles] 100 mg capsule 100 mg PO BID-TID PRN (Reason: cough) Qty: 20 RF: 0 No Action alendronate 70 mg tablet 70 mg PO QWEEK RF: 0 Referrals: Vanessa Lepe MD [Primary Care Provider] -
[2021-04-15] MEDS: BENZONATATE 100 MG CAPSULE PO (18:21)
[2021-04-15 18:28] VITALS: BP 126/81; PULSE 83; RESP 19; O2SAT 95
== END 2021-04-15 18:29 | disposition home or self-care (01) ==
PROVIDERS: Emergency Provider Emergency Medicine; Family Provider Family Medicine; PCP Family Medicine
DX: U07.1 COVID-19 (principal)
CPT/HCPCS: 99283

== ENCOUNTER 2021-04-20 16:06 | Emergency (ER) | payer MEDICARE, MEDICAID, SELFPAY ==
[2021-04-20 16:11] VITALS: BP 139/83; PULSE 94; RESP 18; TEMP 36.6; O2SAT 95; BMI 23.1
[2021-04-20 17:58] VITALS: O2SAT 95
--- NOTE | 2021-04-20 18:47 | PC.NURSE ---
Patient left room before discharge, came back and signed discharge paper work. Returned again and stood in front of computer asking about taking Ivermectin. Educated about the use and purpose of Ivermectin and that it is not an approved treatment for Covid-19. Acknowledged teaching.
--- NOTE | 2021-04-20 21:03 | ED_ITS ---
HPI - URI/Sore Throat <Warren Espitia PA-C - Last Filed: 04/23/21 12:45> General Chief Complaint: Upper Respiratory Symptoms Stated Complaint: Vitals very low, covid+ Time Seen by Provider: 04/20/21 17:56 Source: patient Mode of arrival: Ambulatory History of Present Illness HPI Narrative: 66-year-old female with past medical history inguinal hernia presents to the ED with concerns about her vital signs. Patient tested positive for COVID on the 13 of April, has been experiencing some URI symptoms. Patient states that her home readings ofoxygen saturation was in the 80s to low 90s, her temperature was in the 80s with a temporal thermometer. patient denies fever, chills, chest pain, shortness of breath, nausea, vomiting, abdominal pain, lightheadedness, dizziness, syncope. Patient appears well in the ED. patient is unvaccinated for COVID-19. Related Data Home Medications Medication Instructions Recorded Confirmed alendronate 70 mg tablet 70 mg PO QWEEK 01/29/21 04/13/21 Previous Rx's Medication Instructions Recorded benzonatate 100 mg capsule 100 mg PO BID-TID PRN #20 cap 04/15/21 (Alicia Mccall) Allergies Allergy/AdvReac Type Severity Reaction Status Date / Time No Known Drug Allergies Allergy Verified 04/24/21 19:01 Review of Systems <Warren Espitia PA-C - Last Filed: 04/23/21 12:45> Constitutional Constitutional: Denies chills, Reports fatigue, Denies fever(s), Denies frequent falls, Reports lethargy, Reports malaise and Denies weakness Eyes Eyes: Denies change in vision, Denies eye discharge, Denies irritation and Denies loss of vision ENT Ears, Nose, Mouth, and Throat: Denies change in voice, Denies dizziness, Denies neck pain, Denies sore throat and Denies throat swelling Cardiovascular Cardiovascular: Denies chest pain, Denies irregular heart rhythm, Denies lightheadedness, Denies palpitations, Denies dyspnea, Denies dyspnea on exertion and Denies orthopnea Respiratory Respiratory: Denies cough, Denies dyspnea, Denies dyspnea on exertion and Denies wheezing Gastrointestinal Gastrointestinal: Denies abdominal pain, Denies change in bowel habits, Denies diarrhea, Denies nausea and Denies vomiting Musculoskeletal Musculoskeletal: Denies neck pain and Denies numbness Integumentary/Breasts Skin/Breast: Denies pruritus, Denies erythema, Denies rash and Denies wounds Neurologic Neurologic: Denies behavioral changes, Denies confusion, Denies dizziness, Denies frequent falls, Denies loss of vision, Denies numbness and Denies weakness Psychiatric Psychiatric: Denies anxiety, Denies behavioral changes, Denies confusion, Denies depression, Denies homicidal ideation and Denies suicidal ideation Endocrine Endocrine: Reports fatigue, Denies flushing and Denies palpitations Hematologic/Lymphatic Hematologic/Lymphatic: Denies easy bruising Allergic/Immunologic Allergic/Immunologic: Denies urticaria, Denies throat swelling and Denies wheezing Patient History <Warren Espitia PA-C - Last Filed: 04/23/21 12:45> Medical History Hx of ectopic Osteopenia Osteoporosis Surgical History History of back surgery History of tonsillectomy Family History Father Cancer Heart problem Mother Cancer Social History household members: significant other Smoking Status: Never smoker alcohol intake: never Smoking Status: Never smoker Substance Use Type: does not use Exam <Warren Espitia PA-C - Last Filed: 04/23/21 12:45> Narrative Exam Narrative: Benign physical exam. Lungs bilaterally clear to auscultation. normal Heart sounds, regular rate and rhythm. Patient appears well, speaking in full sentences, no abnormal work of breathing. Initial Vital Signs Initial Vital Signs: Vital Signs Temperature 97.8 F 04/20/21 16:11 Pulse Rate 94 H 04/20/21 16:11 Respiratory Rate 18 04/20/21 16:11 Blood Pressure 139/83 04/20/21 16:11 Pulse Oximetry 95 04/20/21 16:11 Const General: cooperative HENOR Head: normocephalic and atraumatic Ears: external ears normal and TM's normal bilaterally Nose: external nose normal and No nasal discharge Face and sinus: sinuses nontender, face symmetric, no sinus tenderness and No dry mucous membranes Mouth: oral mucosae normal and moist mucous membranes Teeth and gingiva: dentition normal Throat: tonsils normal and uvula midline Eyes General: appearance normal, both eyes and all related structures Eyelids: eyelids normal Conjunctivae: conjunctivae normal Sclera: sclerae normal Pupils: PERRL EOM: EOM intact bilaterally Neck Neck: normal visual inspection, trachea midline, No lymphadenopathy, No midline deformity and No JVD Lymphatic: No lymphedema Chest Chest: normal inspection of the chest Resp Effort & Inspection: normal respiratory effort, able to speak in complete sentences, no respiratory distress and no use of accessory muscles Auscultation: clear to auscultation bilaterally, no rales, no rhonchi and no wheezes Cardio Rate: regular rate Rhythm: regular rhythm Heart Sounds: no click, no gallops, no murmurs and no rubs Pulses: normal peripheral pulses GI Inspection: non-distended Palpation: soft, no hepatosplenomegaly, No guarding, No pulsatile mass and No tender Auscultation: normal bowel sounds Back/Spine/Pelvis Back: No CVA tenderness Cervical Spine: cervical ROM normal and No pain with cervical ROM Thoracic/Lumbar Spine: thoracic and lumbar spine normal to inspection Skin General: no rashes or lesions noted, No jaundice and No petechiae Neuro General: patient alert, patient oriented x3, gait normal and no focal motor deficits Speech: speech normal Extrem General: full ROM, no clubbing, cyanosis or edema, no pedal edema and no calf tenderness Psych Appearance: well kempt Mental Status: mental status grossly normal Attitude: cooperative Thought Content: normal and suicidality Judgment: judgment good <Suraj Hay DO - Last Filed: 04/29/21 07:09> Initial Vital Signs Initial Vital Signs: Vital Signs Temperature 97.8 F 04/20/21 16:11 Pulse Rate 94 H 04/20/21 16:11 Respiratory Rate 18 04/20/21 16:11 Blood Pressure 139/83 04/20/21 16:11 Pulse Oximetry 95 04/20/21 16:11 Course <Warren Espitia PA-C - Last Filed: 04/23/21 12:45> Vital Signs Vital signs: Vital Signs - 8 hr 04/20/21 16:11 04/20/21 17:58 Temperature 97.8 F Pulse Rate 94 H Respiratory Rate 18 Blood Pressure 139/83 Pulse Oximetry 95 95 <Suraj Hay DO - Last Filed: 04/29/21 07:09> Vital Signs Vital signs: Vital Signs - 8 hr 04/20/21 16:11 04/20/21 17:58 Temperature 97.8 F Pulse Rate 94 H Respiratory Rate 18 Blood Pressure 139/83 Pulse Oximetry 95 95 [facility] - URI/Sore Throat <Warren Espitia PA-C - Last Filed: 04/23/21 12:45> Medical Records Attestation: I reviewed the patient's medical records. [facility] Narrative Medical decision making narrative: 66-year-old female with past medical history inguinal hernia presents to the ED with concerns about her vital signs. patient appears well in the ED, physical exam is benign. Patient is afebrile, saturating in the high 90s on room air, temperature 97.8? F. patient has fatigue, malaise likely due to COVID-19 infection. Patient educated on proper use of the pulse oximeter and temporal thermometer. ED return precautions discussed. Patient verbalized understanding. Discharge home. Discharge Plan Departure Patient Disposition: Home Clinical Impression: COVID-19 Instructions: Coronavirus Disease 2019, Can COVID-19 be prevented? Activity Restrictions/Additional Instructions: You were evaluated in the ED today for COVID-19 symptoms. You tested positive for COVID-19 on April 13. Your vital signs are stable in the ED. you can take ibuprofen or Tylenol for symptoms as needed. Continue to stay hydrated. Return to the ED if you experience worsening symptoms including shortness of breath, chest pain. Prescriptions: No Action alendronate 70 mg tablet 70 mg PO QWEEK RF: 0 benzonatate [Tessalon Perles] 100 mg capsule 100 mg PO BID-TID PRN (Reason: cough) Qty: 20 RF: 0 Referrals: Miscellaneous,Doctor, [Primary Care Provider] - <Suraj Hay DO - Last Filed: 04/29/21 07:09> Cosign ED Attending Cosignature Attestation: Dr Hay Co-Sign Statement: I was available for consultation during this patient's emergency department visit. This chart is signed by myself for administrative purposes only. I did not have direct contact with this patient during this visit. They were seen independently by the APC.
== END 2021-04-20 18:50 | disposition home or self-care (01) ==
PROVIDERS: Emergency Provider Student in an Organized Health Care Education/Training Program; Family Provider Family Medicine
DX: U07.1 COVID-19 (principal)
CPT/HCPCS: 99281

== ENCOUNTER 2021-04-24 18:44 | Emergency (ER) | payer MEDICARE, MEDICAID, SELFPAY ==
[2021-04-24] VITALS (13 sets, daily range): BP systolic 145–187; BP diastolic 82–135; PULSE 61–94; RESP 16–25; TEMP 36.6; O2SAT 95–100; BMI 23.1
--- NOTE | 2021-04-24 19:04 | DI.RAD.S_ITS ---
PROCEDURE: XR CHEST 1V INDICATIONS: chest pain TECHNIQUE: One view of the chest was acquired. COMPARISON: None. FINDINGS: Surgical changes and devices: None. Lungs and pleura: Lungs are clear. No pleural effusions or pneumothorax. Mediastinum: Mediastinal contours appear normal. Heart size is within normal limits. Bones and chest wall: No suspicious bony lesions. Lumbar spine fixation hardware. Prominent bowel gas in the upper abdomen. IMPRESSION: No acute cardiopulmonary abnormality. Prominent upper abdominal bowel gas. Dictated by: Wyatt Grijalva M.D. on 04/24/2021 at 19:39 Approved by: Wyatt Grijalva M.D. on 04/24/2021 at 19:40
--- NOTE | 2021-04-24 19:16 | ED.CHESTPAIN ---
HPI - Chest Pain General Chief Complaint: Chest Pain Stated Complaint: COVID+, Chest Pains Time Seen by Provider: 04/24/21 18:50 Source: patient Mode of arrival: Ambulatory Limitations: no limitations History of Present Illness HPI narrative: Patient is a 66-year-old female with known COVID positive unvaccinated, started having symptoms around 04/05/2021 was diagnosed on 04/13/2021 after 1 week of cough and fatigue. She has been quarantine she has overall been doing well. Was seen evaluated here 3 days ago for possible hypoxia however I was determined that she was cold and the pulse oximeter was not reading correctly. She is currently satting 100% on room air and here today for some chest discomfort. She says that she has actually been having ongoing chest discomfort for at least the last 3-4 days. It goes back and forth from her right to her left. It is not any better or worse with rest or exertion. It is not constant. It does not seem to last for prolonged periods of time however she was concerned. She has been taking aspirin and ibuprofen has needed. She denies any shortness of breath. She thinks that she is overall getting better from COVID. Related Data Home Medications Medication Instructions Recorded Confirmed alendronate 70 mg tablet 70 mg PO QWEEK 01/29/21 04/13/21 Previous Rx's Medication Instructions Recorded benzonatate 100 mg capsule 100 mg PO BID-TID PRN #20 cap 04/15/21 (Alicai Mccall) Allergies Allergy/AdvReac Type Severity Reaction Status Date / Time No Known Drug Allergies Allergy Verified 04/24/21 19:01 Review of Systems Review of Systems Narrative: GENERAL: Denies chills, fatigue, malaise, fever, sweats, travel HEENT: Denies sinus pain, ear pain, sore throat, difficulty swallowing, neck pain RESPIRATORY: Denies dyspnea, cough, wheezing, hemoptysis, sputum. CARDIOVASCULAR: See HPI GASTROINTESTINAL: Denies nausea, vomiting, abdominal pain, diarrhea, constipation, melena. : Denies dysuria, frequency, incontinence, hematuria, urinary retention, flank pain. MUSCULOSKELETAL: Denies weakness, joint pain, or bony pain SKIN: No rash, no erythema, no pruritus NEUROLOGIC: Denies weakness, dizziness, headache, numbness, change in speech, confusion PSYCHIATRIC: No concerning psychosocial issues. 12 point review of systems is negative except for those stated above and HPI Patient History Medical History Hx of ectopic Osteopenia Osteoporosis Surgical History History of back surgery History of tonsillectomy Family History Father Cancer Heart problem Mother Cancer Social History household members: significant other Smoking Status: Never smoker alcohol intake: never Smoking Status: Never smoker Substance Use Type: does not use Exam Initial Vital Signs Initial Vital Signs: Vital Signs Pulse Rate 94 H 04/24/21 18:54 Pulse Oximetry 99 04/24/21 18:54 GENERAL: Alert well-appearing 66-year-old in no acute distress. HEENT: Head atraumatic,EOMI, pupils reactive, face symmetric, moist mucous membranes CARDIOVASCULAR: Regular rate and rhythm without murmurs, rubs or gallops. RESPIRATORY: Breath sounds equal bilaterally, no wheezes rales or rhonchi. ABDOMEN: Soft, nontender. Normoactive bowel sounds all 4 quadrants. No guarding or rebound. EXTREMITIES: Normal range of motion, no clubbing or edema. Neurovascularly intact NEUROLOGICAL: Alert and oriented x4.Normal gait and speech. SKIN: Warm, dry, no laceration, no petechiae, no rashes or lesions. Scores HEART Score Heart Score history: Slightly Suspicious Heart Score EKG: Normal Heart Score Age: > or = 65 years old Heart Score risk factors: No known risk factors Heart Score troponin: < or = to normal limit Heart Score Total: 2 Course Orders Ordered: ED Orders 04/24/21 19:00 Complete Blood Count AUTO DIFF Stat Comprehensive Metabolic Panel Stat D Dimer Stat Lipase Stat Troponin & CK Cardiac Panel Stat 04/24/21 19:04 XR chest 1V Stat EKG-12 Lead Stat 04/24/21 20:04 CT angio chest PE protocol Stat Vital Signs Vital signs: Vital Signs - 8 hr 04/24/21 18:54 04/24/21 18:55 04/24/21 19:00 Temperature Pulse Rate 94 H 87 86 Respiratory Rate 18 Blood Pressure 187/89 H 151/93 H Pulse Oximetry 99 100 100 04/24/21 19:01 04/24/21 19:30 04/24/21 20:00 Temperature 98 F Pulse Rate 91 H 72 68 Respiratory Rate 18 18 Blood Pressure 187/89 H 154/86 H 146/88 H Pulse Oximetry 98 99 98 04/24/21 20:30 04/24/21 20:50 04/24/21 21:00 Temperature Pulse Rate 65 73 61 Respiratory Rate 18 18 16 Blood Pressure 145/92 H 169/135 H Pulse Oximetry 96 97 99 04/24/21 21:01 04/24/21 21:14 04/24/21 21:29 Temperature Pulse Rate 62 74 66 Respiratory Rate 17 22 25 H Blood Pressure 168/82 H 165/90 H Pulse Oximetry 98 95 96 04/24/21 21:30 Temperature Pulse Rate Respiratory Rate Blood Pressure 154/82 H Pulse Oximetry MDM - Chest Pain Lab Data Result diagrams: 04/24/21 19:00 04/24/21 19:00 Labs: Lab Results 04/24/21 04/24/21 04/24/21 Range/Units 19:00 19:00 19:00 WBC 6.2 (4.5-11.0) X10^3/uL RBC 3.67 L (4.0-5.2) X10^6/uL Hgb 11.8 L (12.0-16.0) g/dL Hct 33.8 L (36-46) % MCV 92.0 (80-100) fL MCH 32.1 (26-34) PG MCHC 34.9 (30-36) % RDW 12.4 (11.6-14.8) % Plt Count 674 H (150-400) X10^3/uL Neut % (Auto) 67.0 (50-75) % Lymph % (Auto) 19.2 L (25-40) % [place] % (Auto) 10.8 (3-14) % Eos % (Auto) 1.3 L (2-4) % Baso % (Auto) 1.7 (0-2) % Neut # (Auto) 4100 (3570-9094) /uL Lymph # (Auto) 1200 (5109-1345) /uL [place] # (Auto) 700 (0-900) /uL Eos # (Auto) 100 (0-450) /uL Baso # (Auto) 100 (0-100) /uL D-Dimer 401 H (<230) ng/mL Sodium 130 L (137-145) mmol/L Potassium 3.6 (3.4-5.1) mmol/L Chloride 93 L (98-107) mmol/L Carbon Dioxide 32 (22-32) mmol/L BUN 9 (7-17) mg/dL Creatinine 0.72 (0.52-1.04) mg/dL Estimated GFR > 60.0 (>60) mL/min BUN/Creatinine Ratio 12.5 (6-22) Glucose 123 H (80-110) mg/dL Calcium 9.3 (8.4-10.2) mg/dL Total Bilirubin 0.4 (0.2-1.3) mg/dL AST 33 (14-36) IU/L ALT 26 (<35) IU/L Alkaline Phosphatase 49 (38-126) U/L Total Creatine Kinase 108 (30-135) U/L CK-MB (CK-2) 2.21 (<2.37) ng/mL CK-MB (CK-2) Rel Index 2.0 (1.5-5.0) % Troponin I < 0.012 (0.01-0.034) ng/mL Total Protein 6.9 (6.3-8.2) g/dL Albumin 3.9 (3.5-5.0) g/dL Globulin 3.0 (1.7-4.1) g/dL Albumin/Globulin Ratio 1.3 (1.0-2.8) Lipase 215 (23-300) U/L Imaging Data Chest x-ray: Radiologist's Impression: PROCEDURE:? XR CHEST 1V ? INDICATIONS:? chest pain ? TECHNIQUE:? One view of the chest was acquired.? ? COMPARISON:? None. ? FINDINGS:? ? Surgical changes and devices:? None.? ? Lungs and pleura:? Lungs are clear.? No pleural effusions or pneumothorax.? ? Mediastinum:? Mediastinal contours appear normal.? Heart size is within normal limits.? ? Bones and chest wall:? No suspicious bony lesions.? Lumbar spine fixation hardware.? Prominent bowel gas in the upper abdomen. ? IMPRESSION:? No acute cardiopulmonary abnormality. Prominent upper abdominal bowel gas. ? ? Dictated by: Wyatt Grijalva M.D. on 04/24/2021 at 19:39 ? ? Approved by: Wyatt Grijalva M.D. on 04/24/2021 at 19:40 ? CT scan - chest: Radiologist's Impression: PROCEDURE:? CT ANGIO CHEST PE PROTOCOL ? INDICATIONS:? +dimer with covid ? TECHNIQUE:? After the administration of intravenous contrast, 2 mm thick sections acquired from the pulmonary apices to the posterior costophrenic angles.? 3-dimensional maximum intensity projection (MIP) coronal and sagittal reformats were then acquired through the thorax.? For radiation dose reduction, the following was used:? automated exposure control, adjustment of mA and/or kV according to patient size.? ? COMPARISON:? [facility], CR, XR THORACIC SPINE 2 VIEWS, 07/18/2019, 18:29. ? FINDINGS:? Image quality:? Excellent.? ? Pulmonary arteries:? Pulmonary arteries are normal in size, and demonstrate no intraluminal filling defects to suggest central pulmonary embolism.? ? Lungs and pleura:? Moderate reticular nodular opacity in both lungs.? This is predominantly dependent.? No pleural effusions or pneumothorax.? Central and peripheral airways are patent.? ? Mediastinum:? Heart size is normal, trace pericardial effusion.? No mediastinal or hilar adenopathy.? Thoracic aorta is normal in caliber and enhancement.? Esophagus is normal in caliber, without hiatal hernia.? ? Bones and chest wall:? No suspicious bony lesions.? Lumbar spine hardware.? Prior lung L2 compression fracture.? Ribs and thoracic spine appear intact throughout.? Thyroid gland is unremarkable.? No axillary or supraclavicular adenopathy.? ? Abdomen:? Prominent bowel gas in the upper abdomen.? Visualized upper abdominal solid organs appear normal in the early arterial phase of enhancement.? ? IMPRESSION:? 1. No pulmonary embolism. ? 2. Moderate bilateral dependent reticular nodular opacity.? Suspect infectious/inflammatory etiology such as multifocal pneumonia. ? ? ? Dictated by: Wyatt Grijalva M.D. on 04/24/2021 at 21:19 ? ? Approved by: Wyatt Grijalva M.D. on 04/24/2021 at 21:23 ECG Data Interpretation: Normal sinus rhythm rate 66 TX interval 164 QRS 88 2248 T-wave inversion noted in lead [address] changes MDM Narrative Medical decision making narrative: The patient is a known COVID positive patient with ongoing chest discomfort radiating from right to left side ongoing for number of days. She has negative troponin EKG is does show 1 T-wave inversion only without significant ST changes. CT angio does not show any pulmonary embolism. Workup is overall reassuring. At this time there is no complication. She is a low risk heart score chest pain is likely secondary to COVID. At this time recommend outpatient follow-up. Patient's oxygen level remains 93-100% on room air. She has no respiratory distress. At this time does not meet any admission criteria for COVID. Discharge Plan Departure Patient Disposition: Home Clinical Impression: COVID-19 Instructions: DI for COVID-19 (Suspected or Confirmed ), Can COVID-19 be prevented? Activity Restrictions/Additional Instructions: *You have been diagnosed with COVID-19 *What to do: I hope that you are on the mend. Please continue to monitor your oxygen levels at home. No evidence of heart issue or a lung issue today. *Continue to take medications as directed There is no medication for COVID *Follow up with your primary care provider in 2-3 days *Return to ER if you should have increasing shortness of breath, oxygen less than 90%, increasing chest pain or any new, worsening or concerning symptoms Prescriptions: No Action alendronate 70 mg tablet 70 mg PO QWEEK RF: 0 benzonatate [Tessalon Perles] 100 mg capsule 100 mg PO BID-TID PRN (Reason: cough) Qty: 20 RF: 0 Referrals: Miscellaneous,Doctor, [Primary Care Provider] -
[2021-04-24 19:21] LABS: Alanine Aminotransferase 26 IU/L (<35); Albumin 3.9 g/dL (3.5-5.0); Albumin Globulin Ratio 1.3 (1.0-2.8); Alkaline Phosphatase 49 U/L (38-126); Aspartate Aminotransferase 33 IU/L (14-36); BUN Creatinine Ratio 12.5 (6-22); Bilirubin Total 0.4 mg/dL (0.2-1.3); Blood Urea Nitrogen 9 mg/dL (7-17); Calcium 9.3 mg/dL (8.4-10.2); Carbon Dioxide 32 mmol/L (22-32); Chloride 93 mmol/L (98-107); Creatine Kinase 108 U/L (30-135); Estimated Glomerular Filt Rate > 60.0 mL/min (>60); Glucose 123 mg/dL (80-110); HEMOLYSIS < 15 (0-50); Lipase 215 U/L (23-300); Potassium 3.6 mmol/L (3.4-5.1); Sodium 130 mmol/L (137-145); Total Protein 6.9 g/dL (6.3-8.2)
[2021-04-24 19:24] LABS: Add Manual Diff / Slide Review NO; Basophils Absolute Auto 100 /uL (0-100); Basophils Percent Auto 1.7 % (0-2); Eosinophils Absolute Auto 100 /uL (0-450); Eosinophils Percent Auto 1.3 % (2-4); Hematocrit 33.8 % (36-46); Hemoglobin 11.8 g/dL (12.0-16.0); Lymphocytes Absolute Auto 1200 /uL (1100-4500); Lymphocytes Percent Auto 19.2 % (25-40); Mean Corpuscular HGB Conc 34.9 % (30-36); Mean Corpuscular Hemoglobin 32.1 PG (26-34); Monocytes Absolute Auto 700 /uL (0-900); Monocytes Percent Auto 10.8 % (3-14); Neutrophils Absolute Auto 4100 /uL (1500-7000); Platelet Count 674 X10^3/uL (150-400); Red Blood Cell Count 3.67 X10^6/uL (4.0-5.2); Red Cell Distribution Width 12.4 % (11.6-14.8); White Blood Cell Count 6.2 X10^3/uL (4.5-11.0)
[2021-04-24 19:33] LABS: Troponin I < 0.012 ng/mL (0.01-0.034)
[2021-04-24 19:36] LABS: Creatine Kinase MB 2.21 ng/mL (<2.37)
[2021-04-24 20:00] LABS: D Dimer 401 ng/mL (<230)
--- NOTE | 2021-04-24 20:04 | DI.CT.S_ITS ---
PROCEDURE: CT ANGIO CHEST PE PROTOCOL INDICATIONS: +dimer with covid TECHNIQUE: After the administration of intravenous contrast, 2 mm thick sections acquired from the pulmonary apices to the posterior costophrenic angles. 3-dimensional maximum intensity projection (MIP) coronal and sagittal reformats were then acquired through the thorax. For radiation dose reduction, the following was used: automated exposure control, adjustment of mA and/or kV according to patient size. COMPARISON: [facility], CR, XR THORACIC SPINE 2 VIEWS, 07/18/2019, 18:29. FINDINGS: Image quality: Excellent. Pulmonary arteries: Pulmonary arteries are normal in size, and demonstrate no intraluminal filling defects to suggest central pulmonary embolism. Lungs and pleura: Moderate reticular nodular opacity in both lungs. This is predominantly dependent. No pleural effusions or pneumothorax. Central and peripheral airways are patent. Mediastinum: Heart size is normal, trace pericardial effusion. No mediastinal or hilar adenopathy. Thoracic aorta is normal in caliber and enhancement. Esophagus is normal in caliber, without hiatal hernia. Bones and chest wall: No suspicious bony lesions. Lumbar spine hardware. Prior lung L2 compression fracture. Ribs and thoracic spine appear intact throughout. Thyroid gland is unremarkable. No axillary or supraclavicular adenopathy. Abdomen: Prominent bowel gas in the upper abdomen. Visualized upper abdominal solid organs appear normal in the early arterial phase of enhancement. IMPRESSION: 1. No pulmonary embolism. 2. Moderate bilateral dependent reticular nodular opacity. Suspect infectious/inflammatory etiology such as multifocal pneumonia. Dictated by: Wyatt Grijalva M.D. on 04/24/2021 at 21:19 Approved by: Wyatt Grijalva M.D. on 04/24/2021 at 21:23
== END 2021-04-24 22:05 | disposition home or self-care (01) ==
PROVIDERS: Emergency Provider Emergency Medicine; Family Provider Family Medicine
DX: U07.1 COVID-19 (principal); R07.9 Chest pain, unspecified
CPT/HCPCS: 36415; 71045; 71275; 80053; 82550; 82553; 83690; 84484; 85025; 85379; 93005; 99284

== ENCOUNTER → 2021-06-12 16:05 | Outpatient (CLI) | payer MEDICARE, MEDICAID, SELFPAY ==
--- NOTE | 2021-06-12 16:07 | DI.US.S_ITS ---
PROCEDURE: US ABDOMEN LIMITED INDICATIONS: LEFT GROIN MASS TECHNIQUE: Real-time focused scanning was performed of the abdomen, with image documentation. COMPARISON: None. FINDINGS: Possible left inguinal hernia which may contain loops of bowel. Hernia neck appears to measure approximately 9 millimeters. IMPRESSION: Possible left inguinal hernia which may contain loops of non reducible bowel. Recommend CT scan of the pelvis for definitive characterization. Dictated by: Alexus Vasquez MD, PhD on 06/12/2021 at 17:45 Approved by: Alexus Vasquez MD, PhD on 06/12/2021 at 17:48
== END ==
PROVIDERS: Family Provider Family Medicine; PCP Family Medicine; Referring Provider Surgery; Visit Provider Surgery
DX: R19.09 Other intra-abdominal and pelvic swelling, mass and lump (principal)
CPT/HCPCS: 76705

== ENCOUNTER → 2021-07-03 14:19 | Outpatient (CLI) | payer MEDICARE, MEDICAID, SELFPAY ==
[2021-07-03 15:01] LABS: Add Manual Diff / Slide Review NO; Basophils Absolute Auto 100 /uL (0-100); Basophils Percent Auto 1.5 % (0-2); Eosinophils Absolute Auto 100 /uL (0-450); Eosinophils Percent Auto 3.3 % (2-4); Hematocrit 37.9 % (36-46); Hemoglobin 12.9 g/dL (12.0-16.0); Lymphocytes Absolute Auto 1200 /uL (1100-4500); Lymphocytes Percent Auto 26.9 % (25-40); Mean Corpuscular Volume 94.1 fL (80-100); Monocytes Absolute Auto 400 /uL (0-900); Monocytes Percent Auto 8.2 % (3-14); Neutrophils Absolute Auto 2700 /uL (1500-7000); Neutrophils Percent Auto 60.1 % (50-75); Platelet Count 305 X10^3/uL (150-400); Red Blood Cell Count 4.03 X10^6/uL (4.0-5.2); Red Cell Distribution Width 14.1 % (11.6-14.8); White Blood Cell Count 4.5 X10^3/uL (4.5-11.0)
[2021-07-03 15:45] LABS: BUN Creatinine Ratio 17.9 (6-22); Blood Urea Nitrogen 15 mg/dL (7-17); Calcium 9.4 mg/dL (8.4-10.2); Carbon Dioxide 32 mmol/L (22-32); Chloride 102 mmol/L (98-107); Cholesterol 239 mg/dL (140-199); Estimated Glomerular Filt Rate > 60.0 mL/min (>60); Glucose 99 mg/dL (80-110); HDL Cholesterol 86 mg/dL (40-60); HEMOLYSIS < 15 (0-50); LDL Cholesterol Calculated 141 mg/dL (<100); Potassium 4.3 mmol/L (3.4-5.1); Sodium 139 mmol/L (137-145); Triglycerides 59 mg/dL (35-150)
== END ==
PROVIDERS: Family Provider Family Medicine; PCP Family Medicine; Referring Provider Family Medicine; Visit Provider Family Medicine
DX: G62.9 Polyneuropathy, unspecified (principal); Z13.220 Encounter for screening for lipoid disorders; G89.29 Other chronic pain; M25.512 Pain in left shoulder
CPT/HCPCS: 36415; 80048; 80061; 85025

== ENCOUNTER → 2021-07-13 12:28 | Outpatient (CLI) | payer MEDICARE, MEDICAID, SELFPAY ==
--- NOTE | 2021-07-13 13:57 | DI.CT.S_ITS ---
PROCEDURE: CT ABDOMEN PELVIS W CON INDICATIONS: Left groin mass TECHNIQUE: After the administration of oral and IV contrast, axial sections were acquired from the lung bases to the pubic symphysis. Coronal and sagittal reformats were performed. For radiation dose reduction, the following was used: automated exposure control, adjustment of mA and/or kV according to patient size. COMPARISON: [facility], US, US ABDOMEN LIMITED, 06/12/2021, 16:28. [facility], CT, ABDOMEN/PELVIS WITH CONTRAST, 02/19/2014, 13:07. FINDINGS: Image quality: Excellent. Lung bases: Unremarkable. Heart: No significant findings. ABDOMEN: Liver: No masses Gallbladder: Normal wall thickness. Biliary ducts: Nondilated. Pancreas: Normal. Spleen: Normal size. Adrenal Glands: No nodules. Kidneys and Ureters: Normal enhancement. No hydronephrosis or hydroureter. No calcifications. Stomach and Bowel: Stomach, small bowel loops, and colon are unremarkable. Mildly increased quantity of solid stool throughout the colon. Peritoneum: No abnormal intraperitoneal fluid. No free air. Ventral Wall: No hernia. Abdominal Nodes: No retroperitoneal or mesenteric adenopathy by size criteria. Vessels: Aorta and inferior vena cava are normal in size. PELVIS: Pelvic Organs: Age-appropriate uterus with coarse left-sided calcifications. Bladder: Normal wall thickness. Pelvic Nodes: No enlarged lymph nodes. No suspicious masses. Miscellaneous: Very tiny fat containing left femoral hernia without bowel. Bones: Surgical changes of thoracolumbar fusion around an L1 compression fracture. No acute fractures. IMPRESSION: 1. Probable tiny fat containing left femoral hernia. 2. Remote L1 compression fracture with adjacent hardware fixation. Dictated by: Jessica Whyte M.D. on 07/13/2021 at 16:34 Approved by: Jessica Whyte M.D. on 07/13/2021 at 16:47
== END ==
PROVIDERS: Family Provider Family Medicine; PCP Family Medicine; Referring Provider Surgery; Visit Provider Surgery
DX: R19.09 Other intra-abdominal and pelvic swelling, mass and lump (principal); M48.56XA Collapsed vertebra, not elsewhere classified, lumbar region, initial encounter for fracture
CPT/HCPCS: 74177

== ENCOUNTER → 2022-01-25 16:11 | Outpatient (CLI) | payer MEDICARE, MEDICAID, SELFPAY ==
[2022-01-25 16:36] LABS: COVID19 -Nasal RAPID Negative (Negative)
== END ==
PROVIDERS: Family Provider Family Medicine; PCP Family Medicine; Visit Provider Surgery
DX: Z20.822 Contact with and (suspected) exposure to COVID-19 (principal); Z01.812 Encounter for preprocedural laboratory examination
CPT/HCPCS: 87635; C9803

== ENCOUNTER 2022-01-26 10:58 | Day surgery (SDC) | payer MEDICARE, MEDICAID, SELFPAY ==
[2021-11-04 09:22] VITALS: BMI 22.6
[2022-01-26] VITALS (7 sets, daily range): BP systolic 114–146; BP diastolic 51–84; PULSE 64–81; RESP 10–16; TEMP 37.2–37.3; O2SAT 92–100; BMI 22.6
--- NOTE | 2022-01-26 11:29 | PM.HP.1 ---
History of Present Illness History of Present Illness Date Patient Seen: 01/26/22 Time Patient Seen: 11:29 Chief complaint: SDC Narrative: Trinity is a 67-year-old woman with a left femoral hernia. See the office note from November for details. Patient History Medical History Anus problems Breast pain Broken back (~2011) Cataracts, bilateral (~2017) Chest pain Chronic back pain Chronic left shoulder pain Colon polyps COVID-19 virus infection (04/13/21) Eczema Fibrocystic disease of both breasts Foot pain (~2018) Granuloma annulare Measles Neck pain Osteopenia Osteoporosis Peripheral neuropathy (~2018) Plantar fasciitis Screening for hyperlipidemia Shoulder pain Vision disorder Surgical History Anesthesia History of back surgery (~2012) History of colonoscopy History of inguinal hernia repair (02/18/21) History of tonsillectomy Hx of ectopic (~1990) Family & Social History Family History Father Cancer Heart problem Mother Cancer Grandfather Cancer Grandmother History of heart attack Grandmother Pneumonia Social History: household members spouse Tobacco & Substance use: Smoking Status Never smoker alcohol intake never Substance Use Type does not use Meds Home Medications and Allergies Home Medications Medication Instructions Recorded Confirmed Type alendronate 70 mg tablet 70 mg PO QWEEK 01/29/21 01/26/22 History Allergies Allergy/AdvReac Type Severity Reaction Status Date / Time No Known Drug Allergies Allergy Verified 01/26/22 10:47 Exam Vital Signs (past 8 hours): - 01/26/22 11:12 Temperature 98.9 F Pulse Rate 70 Respiratory Rate 16 Blood Pressure 146/84 H Pulse Oximetry 98 Oxygen Delivery Method Room Air Oxygen Delivery Method Room Air Narrative Exam Narrative: There is a left groin hernia verses femoral Assessment & Plan Assessment and plan (1) Left femoral hernia without obstruction or gangrene: Status: Acute Plan Laparoscopic left groin hernia repair with mesh. We reviewed the risks and benefits and she would like to proceed. Time Spent With Patient Critical Care time: I spent a total of [] minutes of critical care time on this patient's care today; this time is exclusive of procedural time.
[2022-01-26] MEDS: CEFAZOLIN 2 GM IN 0.9 % NACL 100 ML IV (11:54)
--- NOTE | 2022-01-26 12:12 | SUR.OPER ---
Supine on padded OR bed, head on pillow, pink pad positioner with arms padded and tucked at sides, legs uncrossed, safety belt at thigh, tape over blanket over lower legs .
[2022-01-26] MEDS: LIDOCAINE 1% W/EPI 20 ML INJ (12:17)
--- NOTE | 2022-01-26 13:37 | P.OP_ITS ---
Operative Date/Time/Diagnoses Date of procedure: 01/26/22 Time of procedure: 13:37 Pre-op diagnosis: Left femoral hernia Post-op diagnosis: same Procedure & Clinicians Procedure: Laparoscopic left femoral hernia repair with mesh Same procedure as scheduled: Yes Surgeon: Rafael Daniels Anesthesia Type: General Operative Notes Procedure in detail: The patient was given preoperative antibiotics. The patient was brought to the operating room, placed on the table in the supine position with the arms tucked and general anesthesia was induced. The abdomen was prepped and draped in the usual fashion. A time-out was performed. A 1 cm supraumbilical incision was created and dissection was carried down to the fascia which was scored transversely with cautery. A Peon clamp was used to acosta the peritoneum. The Harsha port was placed and the abdomen was insufflated to 15 mmHg. The camera was inserted, there was no evidence of any injury from the entry. There was a left femoral hernia containing peritoneum and preperitoneal fat. 5 mm ports were placed under direct vision in the mid left and mid right abdomen. The patient was positioned in steep Trendelenburg. We created left peritoneal flap. The peritoneum was dissected off the round ligament and the Tanner's ligament was exposed. A a medium left Bard mesh was brought in and placed over the defect with the medial edge against Tnaner's ligament. We then closed the peritoneal flap with a running 3-0 barbed suture. We took one last look around the abdomen and saw no other abnormalities. The suture was removed and accounted for. The 5 mm ports were removed under direct vision. The abdomen wa s desufflated. The Harsha port was removed. Additional local was injected into the fascia and the infraumbilical fascial incision was closed with 2 interrupted 0 Vicryl sutures. The skin incisions were closed with 4 Monocryl, Steri-Strips and Band-Aids. Post-operative Condition: stable Disposition: PACU
[2022-01-26] MEDS: OXYCODONE/ACETAMINOPHEN 5/325 TABLET 1 TAB PO (13:44)
--- NOTE | 2022-01-26 13:55 | SUR.PHASEI ---
1150: Pt A&Ox4, reports pain as tolerable, VSS, dressings C/D/I, and ready to transition to Phase 2. Report given to GHANSHYAM Hutchinson using SBAR with time allowed for questions. will transfer care now.
== END 2022-01-26 14:29 | disposition home or self-care (01) ==
PROVIDERS: Family Provider Family Medicine; PCP Family Medicine; Referring Provider Surgery; Visit Provider Surgery
PROC: 0YQ64ZZ Repair Left Inguinal Region, Percutaneous Endoscopic Approach (ICD-10-PCS; CPT 49659; principal; 2022-01-26 12:15)
DX: K41.90 Unilateral femoral hernia, without obstruction or gangrene, not specified as recurrent (principal)
CPT/HCPCS: 49659; J0690; J1100; J2250; J2405; J2704; J3010

== ENCOUNTER → 2022-10-06 | Outpatient (CLI) | payer MEDICARE, MEDICAID, SELFPAY ==
--- NOTE | 2022-10-06 12:16 | DI.DEXA.S_ITS ---
Bone Density Report Name: ZARIA MIRZA Age: 67 Sex: Female Ethnicity: White Date of : 1955 Indication: osteopenia; monitoring treatment; prior fracture; Referring Provider: NABILA AYON Study: Bone densitometry was performed. Exam Date: October 06, 2022 Accession number: [id number] Bone Density: Region BMD T-score Z-score Classification Femoral Neck (Left) 0.608 -2.2 -0.5 Osteopenia Total Hip (Left) 0.833 -0.9 0.5 Normal Femoral Neck (Right) 0.614 -2.1 -0.4 Osteopenia Total Hip (Right) 0.835 -0.9 0.6 Normal Total Hip Mean 0.834 -0.9 0.6 Normal Total Forearm (Left) 0.519 -1.1 0.8 Osteopenia 1/3 Forearm (Left) 0.683 -0.2 1.8 Normal UD Forearm (Left) 0.337 -1.8 -0.4 Osteopenia World Health Organization criteria for BMD impression classify patients as: Normal (T-score at or above -1.0), Osteopenia (T-score between -1.0 and -2.5), or Osteoporosis (T-score at or below -2.5). 10-year Fracture Risk: FRAX not reported because: Prior hip or vertebral fracture Treated for osteoporosis Previous Exams: -- Region Exam Age BMD T-score BMD Change BMD Change Date g/cm2 vs Baseline vs Previous -- Total Hip(Left) 10/06/2022 67 0.833 -0.9 0.022 (2.7%)# 0.022 (2.7%)# 07/30/2020 65 0.812 -1.1 Total Hip(Right) 10/06/2022 67 0.835 -0.9 0.031 (3.8%)# 0.031 (3.8%)# 07/30/2020 65 0.805 -1.1 -- *Denotes significance at 95% confidence level, LSC for Total Hip = 0.027 g/cm2 # Denotes dissimilar scan types or analysis methods Impression: The patient has low bone mass, based on the Left Femoral Neck T-score. The patient has risk factors, including: previous fracture. No significant bone loss was observed. Discussion: PATIENT UNDER TREATMENT WITH NO SIGNIFICANT BMD LOSS SINCE LAST EXAM. In an untreated patient, BMD typically declines with age. A lack of decline or gain is usually a sign that treatment is efficacious and fracture risk is reduced. It is important to ask patients whether they are taking their medications and to encourage continued and appropriate compliance with their osteoporosis therapies to reduce fracture risk. It is also important to review their risk factors and encourage appropriate calcium and vitamin D intakes, exercise, fall prevention and other lifestyle measures. Follow-Up: Consider a repeat BMD and Vertebral Fracture Assessment (VFA) exam in 2 years or sooner if medically necessary, to reassess this patient's status. Reported by: SHILPA ADEN M.D on 10/06/2022 12:33:00 PM.
== END ==
PROVIDERS: Family Provider Family Medicine; PCP Family Medicine; Referring Provider Family Medicine; Visit Provider Family Medicine
DX: M81.0 Age-related osteoporosis without current pathological fracture (principal); Z79.83 Long term (current) use of bisphosphonates
CPT/HCPCS: 77080

== ENCOUNTER → 2023-07-05 11:47 | Outpatient (CLI) | payer OTHER, SELFPAY ==
[2023-07-05 12:21] LABS: Add Manual Diff / Slide Review NO; Basophils Absolute Auto 100 /uL (0-100); Basophils Percent Auto 1.3 % (0-2); Eosinophils Absolute Auto 100 /uL (0-450); Eosinophils Percent Auto 1.6 % (2-4); Hematocrit 38.2 % (36-46); Hemoglobin 13.1 g/dL (12.0-16.0); Lymphocytes Absolute Auto 1100 /uL (1100-4500); Lymphocytes Percent Auto 21.7 % (25-40); Mean Corpuscular HGB Conc 34.2 % (30-36); Mean Corpuscular Hemoglobin 32.3 PG (26-34); Mean Corpuscular Volume 94.5 fL (80-100); Monocytes Absolute Auto 400 /uL (0-900); Monocytes Percent Auto 7.6 % (3-14); Neutrophils Absolute Auto 3300 /uL (1500-7000); Neutrophils Percent Auto 67.8 % (50-75); Platelet Count 304 X10^3/uL (150-400); Red Blood Cell Count 4.04 X10^6/uL (4.0-5.2); Red Cell Distribution Width 12.7 % (11.6-14.8); White Blood Cell Count 4.9 X10^3/uL (4.5-11.0)
[2023-07-05 12:43] LABS: Alanine Aminotransferase 20 IU/L (<35); Albumin 4.1 g/dL (3.5-5.0); Albumin Globulin Ratio 1.4 (1.0-2.8); Alkaline Phosphatase 43 U/L (38-126); Aspartate Aminotransferase 27 IU/L (14-36); BUN Creatinine Ratio 19.1 (6-22); Bilirubin Total 0.6 mg/dL (0.2-1.3); Blood Urea Nitrogen 17 mg/dL (7-17); Calcium 9.7 mg/dL (8.4-10.2); Carbon Dioxide 30 mmol/L (22-32); Chloride 98 mmol/L (98-107); Cholesterol 234 mg/dL (140-199); Estimated Glomerular Filt Rate > 60 mL/min (>60); Glucose 105 mg/dL (80-110); HDL Cholesterol 73 mg/dL (40-60); HEMOLYSIS < 15 (0-50); LDL Cholesterol Calculated 151 mg/dL (<100); Lipase 107 U/L (23-300); Potassium 4.3 mmol/L (3.4-5.1); Sodium 135 mmol/L (137-145); Total Protein 7.1 g/dL (6.3-8.2); Triglycerides 50 mg/dL (35-150)
[2023-07-05 13:13] LABS: TSH w/ Reflex to FT4 2.83 uIU/mL (0.47-4.68)
== END ==
PROVIDERS: Family Provider Family Medicine; PCP Family Medicine; Referring Provider Family Medicine; Visit Provider Family Medicine
DX: Z13.220 Encounter for screening for lipoid disorders (principal); M54.9 Dorsalgia, unspecified; E78.5 Hyperlipidemia, unspecified; G89.29 Other chronic pain; R07.9 Chest pain, unspecified; M85.80 Other specified disorders of bone density and structure, unspecified site; R07.2 Precordial pain
CPT/HCPCS: 36415; 80053; 80061; 83690; 84443; 85025

== ENCOUNTER → 2023-08-16 09:33 | Outpatient (CLI) | payer MEDICARE, SELFPAY ==
[2023-08-16 11:19] LABS: Free T3, Triiodothyronine Free 4.22 pg/mL (2.77-5.27); Free T4, Direct Thyroxine 1.05 ng/dL (0.78-2.19)
[2023-08-16 11:29] LABS: Cortisol AM (Before 10AM) 12.4 ug/dL (4.46-22.7)
[2023-08-16 11:32] LABS: Thyroid Stimulating Hormone 2.74 uIU/mL (0.47-4.68)
== END ==
PROVIDERS: Family Provider Family Medicine; PCP Family Medicine; Referring Provider Nurse Practitioner; Visit Provider Nurse Practitioner
DX: R53.83 Other fatigue (principal)
CPT/HCPCS: 36415; 82533; 84439; 84443; 84481

== ENCOUNTER → 2023-09-14 16:40 | Outpatient (CLI) | payer MEDICARE, SELFPAY | PROVIDERS: Family Provider Family Medicine; PCP Family Medicine; Visit Provider Physician Assistant | DX: N89.8 Other specified noninflammatory disorders of vagina (principal); Z11.3 Encounter for screening for infections with a predominantly sexual mode of transmission | CPT/HCPCS: 87210; 87491; 87563; 87591 ==

== ENCOUNTER → 2023-10-19 13:12 | Outpatient (CLI) | payer OTHER, SELFPAY ==
--- NOTE | 2023-10-19 13:15 | DI.MG.S_ITS ---
BILATERAL DIGITAL SCREENING MAMMOGRAM 3D/2D WITH CAD: 10/19/2023 CLINICAL: Routine screening. Family history of breast cancer. Comparison is made to exams dated: 09/30/2022 mammogram, 08/20/2021 mammogram, and 08/06/2020 mammogram - [facility]. There are scattered areas of fibroglandular density in both breasts (category b / 25%-50% glandular tissue). Current study was also evaluated with a Computer Aided Detection (CAD) system. No significant masses, calcifications, or other findings are seen in either breast. IMPRESSION: NEGATIVE There is no mammographic evidence of malignancy. A 1 year screening mammogram is recommended. Based on the Tyrer Cuzick model (a risk assessment model) the patient's lifetime risk is 6.0% and her 10 year risk is 3.6%. According to the ACR, ACS, and NCCN guidelines, an annual breast MRI exam along with mammogram is recommended if the patient's lifetime risk is 20% or greater. This exam was interpreted at Station ID: [id number]. NOTE: For mammograms, a report in lay terms will be sent to the patient. Approximately 15% of breast malignancies will not be visualized mammographically. In the management of a palpable breast mass, a negative mammogram must not discourage biopsy of a clinically suspicious lesion. Electronically Signed By: Dianne rivas/behzad:10/19/2023 14:13:24 letter sent: Normal Exam ACR BI-RADS Category 1: Negative [id number]
== END ==
LOC: MAMMO 13:14
PROVIDERS: Family Provider Family Medicine; PCP Family Medicine; Referring Provider Family Medicine; Visit Provider Family Medicine
DX: Z12.31 Encounter for screening mammogram for malignant neoplasm of breast (principal); Z80.3 Family history of malignant neoplasm of breast; R92.323 Mammographic fibroglandular density, bilateral breasts
CPT/HCPCS: 77063; 77067